=== PATIENT | male | born 1975 | race American Indian/Alaskan Native ===

== ENCOUNTER 2018-09-13 12:31 | Emergency (ER) | payer OTHER ==
--- NOTE | 2018-09-13 12:42 | Emergency Department Report ---
ED General Adult HPI - General Stated complaint: HBP Time Seen by Provider: 09/13/18 12:39 Source: patient, EMS Mode of arrival: Stretcher Limitations: No Limitations - History of Present Illness Initial comments: Patient is a 43-year-old male that presents emergency room with complaints of high blood pressure. Patient states he wrapped his blood pressure medications yesterday so he called EMS for a ride to the hospital. Patient denies chest pain shortness of breath. Patient states he just needs a refill of his medications. Patient denies abdominal pain. Patient denies headache. Patient denies blurry vision. -: Sudden Consistency: constant Improves with: medication, rest Worsens with: other (missed meds) Associated Symptoms: denies other symptoms. denies: confusion, chest pain, cough, diaphoresis, fever/chills, headaches, loss of appetite, malaise, nausea/vomiting, rash, seizure, shortness of breath, syncope, weakness Treatments Prior to Arrival: none - Related Data Previous Rx's Medication Instructions Recorded Last Taken Type Atorvastatin (Nf) [Lipitor] 10 mg PO QHS #30 tab 03/22/14 Unknown Rx Ciprofloxacin HCl [Ciprofloxacin 500 mg PO BID #14 tablet 05/06/16 Unknown Rx TAB] NIFEdipine XL [Procardia Xl] 90 mg PO QDAY 7 Days #7 tablet 09/13/18 Unknown Rx cloNIDine [Catapres] 0.2 mg PO TID 7 Days #21 tablet 09/13/18 Unknown Rx hydrALAZINE [Apresoline TAB] 100 mg PO TID 7 Days #21 tablet 09/13/18 Unknown Rx Allergies Allergy/AdvReac Type Severity Reaction Status Date / Time No Known Allergies Allergy Verified 05/04/16 20:43 ED Review of Systems ROS: Stated complaint: HBP Other details as noted in HPI Constitutional: denies: chills, fever Eyes: denies: eye pain, eye discharge, vision change ENT: denies: ear pain, throat pain Respiratory: denies: cough, shortness of breath, wheezing Cardiovascular: denies: chest pain, palpitations Endocrine: no symptoms reported Gastrointestinal: denies: abdominal pain, nausea, diarrhea Genitourinary: denies: urgency, dysuria Musculoskeletal: denies: back pain, joint swelling, arthralgia Skin: denies: rash, lesions Neurological: denies: headache, weakness, paresthesias Psychiatric: denies: anxiety, depression Hematological/Lymphatic: denies: easy bleeding, easy bruising ED Past Medical Hx - Past Medical History Previous Medical History?: Yes Hx Hypertension: Yes Hx CVA: Yes (hemo in Dec) Hx Congestive Heart Failure: No Hx Diabetes: No Hx Renal Disease: Yes Hx Asthma: No Hx COPD: No - Surgical History Past Surgical History?: Yes Additional Surgical History: removed left testicle. - Family History Family history: no significant - Social History Smoking Status: Current Every Day Smoker Substance Use Type: None - Medications Home Medications: Home Medications Medication Instructions Recorded Confirmed Last Taken Type Atorvastatin (Nf) [Lipitor] 10 mg PO QHS #30 tab 03/22/14 05/04/16 Unknown Rx Ciprofloxacin HCl [Ciprofloxacin 500 mg PO BID #14 tablet 05/06/16 Unknown Rx TAB] NIFEdipine XL [Procardia Xl] 90 mg PO QDAY 7 Days #7 tablet 09/13/18 Unknown Rx cloNIDine [Catapres] 0.2 mg PO TID 7 Days #21 tablet 09/13/18 Unknown Rx hydrALAZINE [Apresoline TAB] 100 mg PO TID 7 Days #21 tablet 09/13/18 Unknown Rx ED Physical Exam - General Limitations: No Limitations General appearance: alert, in no apparent distress - Head Head exam: Present: atraumatic, normocephalic - Eye Eye exam: Present: normal appearance, PERRL Pupils: Present: normal accommodation - ENT ENT exam: Present: mucous membranes moist - Neck Neck exam: Present: normal inspection - Respiratory Respiratory exam: Present: normal lung sounds bilaterally. Absent: respiratory distress - Cardiovascular Cardiovascular Exam: Present: regular rate, normal rhythm. Absent: systolic murmur, diastolic murmur, rubs, gallop - GI/Abdominal GI/Abdominal exam: Present: soft, normal bowel sounds. Absent: distended, tenderness, guarding - Rectal Rectal exam: Present: deferred - Extremities Exam Extremities exam: Present: normal inspection, full ROM. Absent: tenderness - Back Exam Back exam: Present: normal inspection, full ROM. Absent: tenderness - Neurological Exam Neurological exam: Present: alert, oriented X3 - Psychiatric Psychiatric exam: Present: normal affect, normal mood - Skin Skin exam: Present: warm, dry, intact, normal color. Absent: rash ED Course Vital Signs 09/13/18 09/13/18 12:53 13:13 Temperature 98.1 F Pulse Rate 91 H 84 Respiratory 18 Rate Blood Pressure 197/108 O2 Sat by Pulse 99 Oximetry - Reevaluation(s) Reevaluation #1: Discussed all results with patient. Patient's blood pressure is better. Patient denies chest pain shortness of breath. Patient will be given a refill of his medications. Discussed discharge instructions the patient. Patient was interesting in discharge instructions. Patient encouraged to take all of his medications as directed. Patient encouraged to monitor blood pressure. 09/13/18 14:14 ED Medical Decision Making - Lab Data Result diagrams: 09/13/18 13:27 09/13/18 13:27 - EKG Data -: EKG Interpreted by Al EKG shows normal: sinus rhythm, axis, intervals, QRS complexes, ST-T waves Rate: normal - EKG Data Interpretation: LVH - Medical Decision Making Patient is a 43-year-old male that presents emergency room for high blood pressure. Patient's blood pressure significantly high but patient missed his blood pressure medications. Patient given discharge instructions. Patient instructed to monitor blood pressure patient increase water. Patient to monitor blood pressure. Patient to keep a log and take to his primary care. Patient's labs essentially unremarkable except for chronic kidney disease. EKG negative for acute finding. - Differential Diagnosis high blood pressure. noncompliance. Critical Care Time: Yes Critical care attestation.: If time is entered above; I have spent that time in minutes in the direct care of this critically ill patient, excluding procedure time. Critical Care Time: 35 minutes ED Disposition Clinical Impression: Hypertensive emergency, Noncompliance Hypertension Qualifiers: Hypertension type: essential hypertension Qualified Code(s): I10 - Essential (primary) hypertension Disposition: DC-01 TO HOME OR SELFCARE Is pt being admited?: No Does the pt Need Aspirin: No Condition: Stable Instructions: Hypertension (ED) Additional Instructions: Patient follow up with primary care in 2-3 days. Patient to return to ER if condition worsens. Patient to monitor blood pressure at home and keep a log. Patient to eat a heart healthy and a renal diet. Patient to rest. Patient to take meds as directed. Continue all home medications. Patient to increase water. Prescriptions: hydrALAZINE [Apresoline TAB] 100 mg PO TID 7 Days #21 tablet cloNIDine [Catapres] 0.2 mg PO TID 7 Days #21 tablet NIFEdipine XL [Procardia Xl] 90 mg PO QDAY 7 Days #7 tablet Time of Disposition: 14:21
[2018-09-13] MEDS ORDERED: APRESOLINE PO ONE (13:05)
[2018-09-13] MEDS ORDERED: CATAPRES PO ONE (13:07)
[2018-09-13 13:44] LABS: Hematocrit 34.5 % (35.5-45.6); Hemoglobin 11.4 gm/dl (11.8-15.2); Mean Corpuscular HGB Conc 33 % (32-34); Mean Corpuscular Volume 84 fl (84-94); Platelet Count 212 K/mm3 (140-440)
[2018-09-13 14:07] LABS: Albumin 3.7 g/dL (3.9-5); Calcium 8.7 mg/dL (8.4-10.2)
[2018-09-13 14:18] VITALS: BP 168/106
== END 2018-09-13 15:00 | disposition home or self-care (01) ==
LOC: ED 12:31
DX: I16.1 Hypertensive emergency (principal); Z86.73 Personal history of transient ischemic attack (TIA), and cerebral infarction without residual deficits; F17.200 Nicotine dependence, unspecified, uncomplicated; Z79.899 Other long term (current) drug therapy
CPT/HCPCS: 36415; 80053; 85027; 93005; 93010

== ENCOUNTER 2020-11-19 18:26 | Inpatient (IN) | payer MEDICAID, OTHER ==
[2020-11-19 20:13] LABS: Basophils % (Auto) 0.5 % (0.0-1.8); Eosinophils % (Auto) 0.2 % (0.0-4.3); Hemoglobin 7.5 gm/dl (11.8-15.2); Lymphocytes # (Auto) 1.1 K/mm3 (1.2-5.4); Lymphocytes % (Auto) 10.7 % (13.4-35.0); Mean Corpuscular HGB Conc 31 % (32-34); Mean Corpuscular Volume 76 fl (84-94); Monocytes # (Auto) 0.4 K/mm3 (0.0-0.8); Monocytes % (Auto) 4.4 % (0.0-7.3); Platelet Count 327 K/mm3 (140-440); Red Blood Count 3.16 M/mm3 (3.65-5.03)
[2020-11-19] MEDS ORDERED: hydrALAZINE 20 MG/1 ML INJ IV ONE (20:32)
[2020-11-19] MEDS ORDERED: FUROSEMIDE 20 MG/2 ML INJ IV ONE (20:32)
--- NOTE | 2020-11-19 20:32 | Emergency Department Report ---
ED Shortness of Breath HPI - General Chief Complaint: Extremity Injury, Lower Stated Complaint: FEET AND HANDS SELLING Time Seen by Provider: 11/19/20 20:21 Source: patient Mode of arrival: Ambulatory Limitations: No Limitations - History of Present Illness Initial Comments: Patient is a 45-year-old male who presents emergency room with complaints of sh ortness of breath, dyspnea exertion, bilateral lower extremity swelling. Patient states his swelling started a week ago. Patient had swelling pressure. Patient states that shortness of breath dyspnea exertion started 2 weeks ago and worse. Patient states he has a past medical history of CKD 5 requiring dialysis but patient refused to go to dialysis, hypertension, CVA. Patient pain. Patient states with blood pressure medication but is not taking blood pressure medications. Patient denies calf pain. Patient denies lower extremity pain. Patient denies recent travel. Patient denies recent international travel. Patient denies exposure to the novel coronavirus. Patient denies sick contacts. Patient denies fever and chills. Patient denies cough. Patient denies diarrhea. Patient denies coming in contact with anybody with symptoms of the novel coronavirus. MD Complaint: shortness of breath -: Sudden Severity: severe Consistency: constant Improves With: rest, upright position Worsens With: lying flat, exertion Known History Of: other Associated Symptoms: denies other symptoms Treatments Prior to Arrival: none - Related Data Home Oxygen Therapy: No Previous Rx's Medication Instructions Recorded Last Taken Type Atorvastatin (Nf) [Lipitor] 10 mg PO QHS #30 tab 03/22/14 Unknown Rx Ciprofloxacin HCl [Ciprofloxacin 500 mg PO BID #14 tablet 05/06/16 Unknown Rx TAB] NIFEdipine XL [Procardia Xl] 90 mg PO QDAY 7 Days #7 tablet 09/13/18 Unknown Rx cloNIDine [Catapres] 0.2 mg PO TID 7 Days #21 tablet 09/13/18 Unknown Rx hydrALAZINE [Apresoline TAB] 100 mg PO TID 7 Days #21 tablet 09/13/18 Unknown Rx Allergies Allergy/AdvReac Type Severity Reaction Status Date / Time No Known Allergies Allergy Verified 11/19/20 20:35 ED Review of Systems ROS: Stated complaint: FEET AND HANDS SELLING Other details as noted in HPI Constitutional: denies: chills, fever Eyes: denies: eye pain, eye discharge, vision change ENT: denies: ear pain, throat pain Respiratory: orthopnea, shortness of breath, SOB with exertion, SOB at rest. denies: cough, wheezing Cardiovascular: edema. denies: chest pain, palpitations Endocrine: no symptoms reported Gastrointestinal: denies: abdominal pain, nausea, diarrhea Genitourinary: denies: urgency, dysuria Musculoskeletal: denies: back pain, joint swelling, arthralgia Skin: denies: rash, lesions Neurological: denies: headache, weakness, paresthesias Psychiatric: denies: anxiety, depression Hematological/Lymphatic: denies: easy bleeding, easy bruising ED Past Medical Hx - Past Medical History Previous Medical History?: Yes Hx Hypertension: Yes Hx CVA: Yes (hemo in Dec 2019) Hx Congestive Heart Failure: No Hx Diabetes: No Hx Renal Disease: Yes Hx Asthma: No Hx COPD: No - Surgical History Past Surgical History?: Yes Additional Surgical History: removed left testicle. - Family History Family history: no significant - Social History Smoking Status: Never Smoker Substance Use Type: None - Medications Home Medications: Home Medications Medication Instructions Recorded Confirmed Last Taken Type Atorvastatin (Nf) [Lipitor] 10 mg PO QHS #30 tab 03/22/14 05/04/16 Unknown Rx Ciprofloxacin HCl [Ciprofloxacin 500 mg PO BID #14 tablet 05/06/16 Unknown Rx TAB] NIFEdipine XL [Procardia Xl] 90 mg PO QDAY 7 Days #7 tablet 09/13/18 Unknown Rx cloNIDine [Catapres] 0.2 mg PO TID 7 Days #21 tablet 09/13/18 Unknown Rx hydrALAZINE [Apresoline TAB] 100 mg PO TID 7 Days #21 tablet 09/13/18 Unknown Rx ED Physical Exam - General Limitations: No Limitations General appearance: alert, in no apparent distress - Head Head exam: Present: atraumatic, normocephalic - Eye Eye exam: Present: normal appearance - ENT ENT exam: Present: mucous membranes moist - Neck Neck exam: Present: normal inspection - Respiratory Respiratory exam: Present: rales. Absent: respiratory distress - Cardiovascular Cardiovascular Exam: Present: regular rate, normal rhythm. Absent: systolic murmur, diastolic murmur, rubs, gallop - GI/Abdominal GI/Abdominal exam: Present: soft, normal bowel sounds - Rectal Rectal exam: Present: deferred - Extremities Exam Extremities exam: Present: pedal edema. Absent: tenderness, calf tenderness - Back Exam Back exam: Present: normal inspection - Neurological Exam Neurological exam: Present: alert, oriented X3 - Psychiatric Psychiatric exam: Present: normal affect, normal mood - Skin Skin exam: Present: warm, dry, intact, normal color. Absent: rash ED Course Vital Signs 11/19/20 11/19/20 11/19/20 19:31 19:40 20:30 Temperature 98.6 F Pulse Rate 104 H 101 H Respiratory 18 19 Rate Blood Pressure Blood Pressure 200/164 251/164 [Right] O2 Sat by Pulse 98 97 Oximetry 11/19/20 11/19/20 11/19/20 20:41 20:45 21:01 Temperature Pulse Rate 101 H 99 H 107 H Respiratory 27 H 39 H Rate Blood Pressure 245/156 245/156 215/117 Blood Pressure [Right] O2 Sat by Pulse 99 100 Oximetry 11/19/20 11/19/20 11/19/20 21:15 21:31 21:45 Temperature Pulse Rate 104 H 108 H 107 H Respiratory 32 H 20 Rate Blood Pressure 193/106 193/106 200/113 Blood Pressure [Right] O2 Sat by Pulse 100 100 100 Oximetry 11/19/20 11/19/20 11/19/20 22:01 22:15 22:18 Temperature Pulse Rate 109 H 107 H Respiratory 21 Rate Blood Pressure 195/105 195/105 219/121 Blood Pressure [Right] O2 Sat by Pulse 100 100 Oximetry 11/19/20 11/19/20 11/19/20 22:31 22:45 23:00 Temperature Pulse Rate 104 H 102 H 111 H Respiratory 21 Rate Blood Pressure 186/151 197/108 221/122 Blood Pressure [Right] O2 Sat by Pulse 100 100 Oximetry 11/19/20 11/19/20 11/19/20 23:01 23:15 23:31 Temperature Pulse Rate 107 H 102 H 101 H Respiratory 20 22 Rate Blood Pressure 221/122 212/128 224/128 Blood Pressure [Right] O2 Sat by Pulse 100 100 99 Oximetry 11/19/20 11/20/20 11/20/20 23:45 00:01 00:03 Temperature Pulse Rate 115 H 102 H 104 H Respiratory 15 14 23 Rate Blood Pressure 204/122 213/123 213/123 Blood Pressure [Right] O2 Sat by Pulse 99 99 100 Oximetry 11/20/20 11/20/20 11/20/20 00:11 00:15 00:31 Temperature Pulse Rate 105 H 105 H 101 H Respiratory 22 15 Rate Blood Pressure 200/122 200/122 189/105 Blood Pressure [Right] O2 Sat by Pulse 99 99 Oximetry - Reevaluation(s) Reevaluation #1: Patient on director of cardiac cath lab his blood pressure is 257/121. Patient was given 20 mg of hydralazine and 60 mg IV Lasix. 11/19/20 20:34 Reevaluation #2: Patient received Lasix and hydralazine. Patient states his shortness of breath is unchanged. Patient placed on 2 L of oxygen. Patient's blood pressure is better. Patient blood pressure is 188/107. I discussed all results with patient. I discussed plan of care with patient. Patient agrees with plan of care and admission. Patient to be admitted to the hospitalist service. 11/19/20 21:10 - Consultations Consultation #1: Hospitalist consulted for admission. Hospitalist to admit patient. 11/19/20 21:14 ED Medical Decision Making - Lab Data Result diagrams: 11/19/20 19:54 11/19/20 19:54 - EKG Data -: EKG Interpreted by Me EKG shows normal: sinus rhythm, axis, intervals, QRS complexes, ST-T waves Rate: tachycardia - EKG Data Interpretation: LVH - Radiology Data Radiology results: report reviewed, image reviewed interpreted by me: Chest x-ray: No pneumonia, no pneumothorax, no foreign body, no osseous findings, pulmonary edema noted CHEST 2 VIEWS INDICATION: Hx CHF. COMPARISON: None FINDINGS: SUPPORT DEVICES: None. HEART: Within normal limits. LUNGS/PLEURA: Mild interstitial edema. No effusion. No pneumothorax. ADDITIONAL FINDINGS: None. IMPRESSION: 1. Mild interstitial edema. - Medical Decision Making Patient is a 45-year-old male presents emergency room with complaints of shortness of breath, lower extremity edema, dyspnea exertion, orthopnea. Patient found to have swollen legs. Patient found to have rales on his lung sounds. Patient also found to have elevated blood pressure over 210/110. Patient given Lasix and hydralazine. Patient blood pressure improved. Patient has chronic kidney disease but still makes urine. Patient had labs done which are consistent with chronic kidney disease and anemia. Patient has a dialysis fistula in his left arm. Patient diuresing well in ER. Patient placed on 2 L of oxygen for support. Patient had a chest x-ray which shows pulmonary edema. Patient EKG which shows no acute findings and LVH. I personally viewed the EKG and the chest x-ray. Patient require admission for further evaluation treatment. Patient admitted to the hospitalist service. Critical care time documented due to the multiple reassessments, prolonged time at the bedside, interpretation of diagnostics and labs. - Differential Diagnosis Hypertensive emergency, noncompliance, CHF, volume overload, Critical Care Time: Yes Critical care time in (mins) excluding proc time.: 35 Critical care attestation.: If time is entered above; I have spent that time in minutes in the direct care o f this critically ill patient, excluding procedure time. Critical Care Time: 35 minutes ED Disposition Clinical Impression: Hypertensive emergency, Pulmonary edema cardiac cause, Elevated troponin, SOB (shortness of breath), BELLA (dyspnea on exertion) Acute on chronic renal failure Qualifiers: Acute renal failure type: unspecified Chronic kidney disease stage: unspecified stage Qualified Code(s): N17.9 - Acute kidney failure, unspecified Anemia Qualifiers: Anemia type: unspecified type Qualified Code(s): D64.9 - Anemia, unspecified Disposition: 09 OP ADMIT IP TO THIS HOSP Is pt being admited?: Yes Does the pt Need Aspirin: No Condition: Critical Time of Disposition: 21:14
[2020-11-19 20:36] LABS: Albumin 3.3 g/dL (3.9-5); Calcium 8.5 mg/dL (8.4-10.2)
[2020-11-19 20:49] LABS: Chol/HDL Ratio 2.93 %
[2020-11-19] MEDS ORDERED: cloNIDine 0.2 MG TAB PO ONE (21:59)
[2020-11-19] MEDS ORDERED: hydrALAZINE 20 MG/1 ML INJ IV PRN (21:59)
[2020-11-20] MEDS ORDERED: amLODIPine 5 MG TAB PO ONE (00:06)
[2020-11-20] MEDS ORDERED: ACETAMINOPHEN 325 MG TAB PO PRN (01:43)
[2020-11-20] MEDS ORDERED: NITROGLYCERIN 0.4 MG TAB SUBL SL PRN (01:43)
[2020-11-20] MEDS ORDERED: ONDANSETRON 4 MG/2 ML INJ IV PRN (01:43)
[2020-11-20] MEDS ORDERED: ALBUTEROL 2.5 MG/3 ML NEBU IH PRN (01:43)
[2020-11-20] MEDS ORDERED: MORPHINE 2 MG/1 ML INJ IV PRN (01:43)
[2020-11-20] MEDS ORDERED: hydrALAZINE 20 MG/1 ML INJ IV ONE (01:48)
--- NOTE | 2020-11-20 01:53 | History and Physical Report ---
History of Present Illness Date of examination: 11/20/20 Date of admission: 11/19/20 21:14 Chief complaint: Shortness of breath Lower extremity swelling History of present illness: 45-year-old male with past medical history of hypertension, CVA, renal disease was brought to the emergency room because of shortness of breath, dyspnea exertion, bilateral lower extremity swelling for a week ago. Patient had swelling pressure. Patient states that shortness of breath dyspnea exertion started 2 weeks ago and worse. Patient states he has a past medical history of CKD 5 requiring dialysis but refused to do dialysis. Patient states with blood pressure medication but is not taking blood pressure medications. Patient denies calf pain. Patient denies lower extremity pain. In the emergency room patient is found to have acute CHF exacerbation. Also patient BUN is 56 creatinine is 5.1 and troponin 0 0.074 Past History Past Medical History: hypertension, renal failure, stroke Medications and Allergies Allergies Allergy/AdvReac Type Severity Reaction Status Date / Time No Known Allergies Allergy Verified 11/19/20 20:35 Home Medications Medication Instructions Recorded Confirmed Last Taken Type Atorvastatin (Nf) [Lipitor] 10 mg PO QHS #30 tab 03/22/14 05/04/16 Unknown Rx Ciprofloxacin HCl [Ciprofloxacin 500 mg PO BID #14 tablet 05/06/16 Unknown Rx TAB] NIFEdipine XL [Procardia Xl] 90 mg PO QDAY 7 Days #7 tablet 09/13/18 Unknown Rx cloNIDine [Catapres] 0.2 mg PO TID 7 Days #21 tablet 09/13/18 Unknown Rx hydrALAZINE [Apresoline TAB] 100 mg PO TID 7 Days #21 tablet 09/13/18 Unknown Rx Active Meds: Active Medications Amlodipine Besylate (Amlodipine 5 Mg Tab) 5 mg PO QDAY JOSE Hydralazine HCl (Hydralazine 20 Mg/1 Ml Inj) 10 mg IV Q6HR PRN PRN Reason: Hypertension Last Admin: 11/19/20 23:00 Dose: 10 mg Documented by: Hydralazine HCl (Hydralazine 20 Mg/1 Ml Inj) 10 mg IV ONCE ONE Stop: 11/20/20 01:49 Last Admin: 11/20/20 01:34 Dose: 10 mg Documented by: Review of Systems Cardiovascular: edema, dyspnea on exertion Respiratory: shortness of breath, dyspnea on exertion Exam - Constitutional Vitals: Temp Pulse Resp BP Pulse Ox 98.0 F 102 H 18 190/111 94 11/20/20 01:14 11/20/20 01:34 11/20/20 01:14 11/20/20 01:34 11/20/20 01:14 General appearance: Present: no acute distress, well-nourished - EENT Eyes: Present: PERRL ENT: hearing intact, clear oral mucosa - Neck Neck: Present: supple, normal ROM - Respiratory Respiratory effort: normal Respiratory: bilateral: rales - Cardiovascular Heart Sounds: Present: S1 & S2. Absent: rub, click - Extremities Extremities: pulses symmetrical Extremity abnormal: edema Peripheral Pulses: within normal limits - Abdominal General gastrointestinal: Present: soft, non-tender, non-distended, normal bowel sounds Male genitourinary: Present: normal - Integumentary Integumentary: Present: clear, warm, dry - Musculoskeletal Musculoskeletal: gait normal, strength equal bilaterally - Psychiatric Psychiatric: appropriate mood/affect, intact judgment & insight - Neurologic Neurologic: CNII-XII intact, moves all extremities HEART Score - HEART Score Troponin: Troponin T 0.070 ng/mL (0.00-0.029) H 11/19/20 21:16 Results - Labs CBC & Chem 7: 11/19/20 19:54 11/19/20 19:54 Labs: Laboratory Last Values WBC 9.9 K/mm3 (4.5-11.0) 11/19/20 19:54 RBC 3.16 M/mm3 (3.65-5.03) L 11/19/20 19:54 Hgb 7.5 gm/dl (11.8-15.2) L 11/19/20 19:54 Hct 24.0 % (35.5-45.6) L 11/19/20 19:54 MCV 76 fl (84-94) L 11/19/20 19:54 MCH 24 pg (28-32) L 11/19/20 19:54 MCHC 31 % (32-34) L 11/19/20 19:54 RDW 19.0 % (13.2-15.2) H 11/19/20 19:54 Plt Count 327 K/mm3 (140-440) 11/19/20 19:54 Lymph % (Auto) 10.7 % (13.4-35.0) L 11/19/20 19:54 [place] % (Auto) 4.4 % (0.0-7.3) 11/19/20 19:54 Eos % (Auto) 0.2 % (0.0-4.3) 11/19/20 19:54 Baso % (Auto) 0.5 % (0.0-1.8) 11/19/20 19:54 Lymph # (Auto) 1.1 K/mm3 (1.2-5.4) L 11/19/20 19:54 [place] # (Auto) 0.4 K/mm3 (0.0-0.8) 11/19/20 19:54 Eos # (Auto) 0.0 K/mm3 (0.0-0.4) 11/19/20 19:54 Baso # (Auto) 0.0 K/mm3 (0.0-0.1) 11/19/20 19:54 Seg Neutrophils % 84.2 % (40.0-70.0) H 11/19/20 19:54 Seg Neutrophils # 8.4 K/mm3 (1.8-7.7) H 11/19/20 19:54 Sodium 141 mmol/L (137-145) 11/19/20 19:54 Potassium 3.5 mmol/L (3.6-5.0) L 11/19/20 19:54 Chloride 104.7 mmol/L (98-107) 11/19/20 19:54 Carbon Dioxide 21 mmol/L (22-30) L 11/19/20 19:54 Anion Gap 19 mmol/L 11/19/20 19:54 BUN 56 mg/dL (9-20) H 11/19/20 19:54 Creatinine 5.1 mg/dL (0.8-1.3) H 11/19/20 19:54 Estimated GFR 15 ml/min 11/19/20 19:54 BUN/Creatinine Ratio 11 % 11/19/20 19:54 Glucose 104 mg/dL (75-100) H 11/19/20 19:54 POC Glucose 130 mg/dL (70-105) H 11/19/20 19:39 Calcium 8.5 mg/dL (8.4-10.2) 11/19/20 19:54 Total Bilirubin 0.50 mg/dL (0.1-1.2) 11/19/20 19:54 AST 40 units/L (5-40) 11/19/20 19:54 ALT 82 units/L (7-56) H 11/19/20 19:54 Alkaline Phosphatase 80 units/L (35-129) 11/19/20 19:54 Troponin T 0.070 ng/mL (0.00-0.029) H 11/19/20 21:16 Total Protein 6.5 g/dL (6.3-8.2) 11/19/20 19:54 Albumin 3.3 g/dL (3.9-5) L 11/19/20 19:54 Albumin/Globulin Ratio 1.0 % 11/19/20 19:54 Triglycerides 74 mg/dL (2-149) 11/19/20 19:54 Cholesterol 126 mg/dL (50-199) 11/19/20 19:54 LDL Cholesterol Direct 78 mg/dL (50-130) 11/19/20 19:54 HDL Cholesterol 43 mg/dL (40-59) 11/19/20 19:54 Cholesterol/HDL Ratio 2.93 % 11/19/20 19:54 - Imaging and Cardiology Chest x-ray: report reviewed Assessment and Plan VTE prophylaxis?: Chemical Plan of care discussed with patient/family: Yes - Patient Problems (1) Acute exacerbation of CHF (congestive heart failure) Current Visit: Yes Status: Acute Plan to address problem: Admit the patient to the medical floor. Cardiac diet. Lasix 20 mg IV daily. Fluid restriction. Maintain input output echocardiogram cardiology consult (2) Acute on chronic renal failure Current Visit: Yes Status: Acute Qualifiers: Acute renal failure type: unspecified Chronic kidney disease stage: unspecified stage Qualified Code(s): N17.9 - Acute kidney failure, unspecified; N18.9 - Chronic kidney disease, unspecified Plan to address problem: Patient has stage V CKD. Patient supposed to go to the hemodialysis but patient refused to go to the dialysis. Avoid nephrotoxic drug. Consult nephrology recheck BMP in the morning (3) Hypertension Current Visit: Yes Status: Acute Plan to address problem: Hydralazine 10 mg IV every 6 hours as needed. We will monitor the blood pressure closely (4) Elevated troponin Current Visit: Yes Status: Acute Plan to address problem: Most likely secondary to CKD. Aspirin 81 mg p.o. daily. Lipitor 40 mg p.o. daily. Echocardiogram cardiology consult (5) CVA (cerebrovascular accident due to intracerebral hemorrhage) Current Visit: No Status: Acute Plan to address problem: Stable. Aspirin 81 mg p.o. daily. Lipitor 40 mg p.o. daily (6) DVT prophylaxis Current Visit: Yes Status: Acute Plan to address problem: Heparin 5000 units subcu every 8 hours for DVT prophylaxis. Pepcid 20 mg p.o. twice daily for GI prophylaxis. Patient is a full code
[2020-11-20] MEDS: IPRATROPIUM/ALBUTEROL SULFATE 3 ML AMPUL.NEB IH SCH ×3 (03:13→13:39)
[2020-11-20] MEDS: HEPARIN 5,000 UNIT/1 ML VIAL SUB-Q SCH ×3 (06:02→21:50)
[2020-11-20] MEDS: NIFEdipine XL 90 MG TAB PO SCH (06:02)
[2020-11-20] MEDS: hydrALAZINE 25 MG TAB PO SCH ×4 (08:00→21:45)
--- NOTE | 2020-11-20 09:17 | Electrocardiograph Report ---
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
--- NOTE | 2020-11-20 09:21 | Electrocardiograph Report ---
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
--- NOTE | 2020-11-20 09:27 | Progress Note ---
Assessment and Plan Assessment and plan: 45-year-old -[place] male with a past medical history of CKD stage V and hypertension who presents with lower extremity swelling Assessment and Plan - Patient Problems (1) Acute exacerbation of CHF (congestive heart failure) Current Visit: Yes Status: Acute Plan to address problem: Echocardiogram pending Cardiology consulted Sal (2) Acute on chronic renal failure stage V Current Visit: Yes Status: Acute Plan to address problem: Nephrology consulted Patient is amenable to hemodialysis (3) Hypertension Current Visit: Yes Status: Acute Plan to address problem: Hydralazine 10 mg IV every 6 hours as needed. Continue clonidine and nifedipine for recommendations of cardiology/nephrology (4) NSTEMI type II Current Visit: Yes Status: Acute Plan to address problem: Most likely secondary to uncontrolled hypertension in addition to chronic kidney disease Patient asymptomatic, no chest pain Cardiology consulted Control blood pressure with clonidine, hydralazine, nifedipine (5) CVA (cerebrovascular accident due to intracerebral hemorrhage) Current Visit: No Status: Acute Plan to address problem: Stable. Continue aspirin 81 mg p.o. daily. Lipitor 40 mg p.o. daily (6) DVT prophylaxis Current Visit: Yes Status: Acute Plan to address problem: Heparin 5000 units subcu every 8 hours for DVT prophylaxis. Pepcid 20 mg p.o. twice daily for GI prophylaxis. Patient is a full code Disposition: Pending echocardiogram, diurese patient, patient may need dialysis which he is amenable to. Nephrology to speak to the patient pertaining to this. History Interval history: 11/20/2020: Patient seen and examined, eating breakfast, no chest pain, no shortness of breath, complains of lower extremity pain and swelling. Hospitalist Physical - Physical exam Narrative exam: General appearance: no acute distress, well-nourished EENT: PERRL, EOM intact, hearing intact, clear oral mucosa Neck: Present: supple, normal ROM Respiratory: bilateral CTA, negative: rales, rhonchi, wheezing Cardiovascular: Regular rate/rhythm, Normal S1 & S2. No gallop, rub Extremities: no ischemia, normal temperature, normal color, Full ROM, +1 pitting edema bilaterally in lower extremities Abdominal: soft, no tenderness, non-distended, normal bowel sounds Integumentary: Present: clear, warm, dry no wounds, no erythema noted Psychiatric: appropriate mood/affect, intact judgment & insight Neurologic: CNII-XII intact, moves all extremities, no sensory or motor abnormalities - Constitutional Vitals: Temp Pulse Resp BP Pulse Ox 98.4 F 98 H 18 173/99 100 11/20/20 03:59 11/20/20 03:59 11/20/20 03:59 11/20/20 03:59 11/20/20 05:00 HEART Score - HEART Score Troponin: Troponin T 0.070 ng/mL (0.00-0.029) H 11/19/20 21:16 Results - Labs CBC & Chem 7: 11/19/20 19:54 11/19/20 19:54 Labs: Laboratory Last Values WBC 9.9 K/mm3 (4.5-11.0) 11/19/20 19:54 RBC 3.16 M/mm3 (3.65-5.03) L 11/19/20 19:54 Hgb 7.5 gm/dl (11.8-15.2) L 11/19/20 19:54 Hct 24.0 % (35.5-45.6) L 11/19/20 19:54 MCV 76 fl (84-94) L 11/19/20 19:54 MCH 24 pg (28-32) L 11/19/20 19:54 MCHC 31 % (32-34) L 11/19/20 19:54 RDW 19.0 % (13.2-15.2) H 11/19/20 19:54 Plt Count 327 K/mm3 (140-440) 11/19/20 19:54 Lymph % (Auto) 10.7 % (13.4-35.0) L 11/19/20 19:54 [place] % (Auto) 4.4 % (0.0-7.3) 11/19/20 19:54 Eos % (Auto) 0.2 % (0.0-4.3) 11/19/20 19:54 Baso % (Auto) 0.5 % (0.0-1.8) 11/19/20 19:54 Lymph # (Auto) 1.1 K/mm3 (1.2-5.4) L 11/19/20 19:54 [place] # (Auto) 0.4 K/mm3 (0.0-0.8) 11/19/20 19:54 Eos # (Auto) 0.0 K/mm3 (0.0-0.4) 11/19/20 19:54 Baso # (Auto) 0.0 K/mm3 (0.0-0.1) 11/19/20 19:54 Seg Neutrophils % 84.2 % (40.0-70.0) H 11/19/20 19:54 Seg Neutrophils # 8.4 K/mm3 (1.8-7.7) H 11/19/20 19:54 Sodium 141 mmol/L (137-145) 11/19/20 19:54 Potassium 3.5 mmol/L (3.6-5.0) L 11/19/20 19:54 Chloride 104.7 mmol/L (98-107) 11/19/20 19:54 Carbon Dioxide 21 mmol/L (22-30) L 11/19/20 19:54 Anion Gap 19 mmol/L 11/19/20 19:54 BUN 56 mg/dL (9-20) H 11/19/20 19:54 Creatinine 5.1 mg/dL (0.8-1.3) H 11/19/20 19:54 Estimated GFR 15 ml/min 11/19/20 19:54 BUN/Creatinine Ratio 11 % 11/19/20 19:54 Glucose 104 mg/dL (75-100) H 11/19/20 19:54 POC Glucose 130 mg/dL (70-105) H 11/19/20 19:39 Calcium 8.5 mg/dL (8.4-10.2) 11/19/20 19:54 Total Bilirubin 0.50 mg/dL (0.1-1.2) 11/19/20 19:54 AST 40 units/L (5-40) 11/19/20 19:54 ALT 82 units/L (7-56) H 11/19/20 19:54 Alkaline Phosphatase 80 units/L (35-129) 11/19/20 19:54 Troponin T 0.070 ng/mL (0.00-0.029) H 11/19/20 21:16 Total Protein 6.5 g/dL (6.3-8.2) 11/19/20 19:54 Albumin 3.3 g/dL (3.9-5) L 11/19/20 19:54 Albumin/Globulin Ratio 1.0 % 11/19/20 19:54 Triglycerides 74 mg/dL (2-149) 11/19/20 19:54 Cholesterol 126 mg/dL (50-199) 11/19/20 19:54 LDL Cholesterol Direct 78 mg/dL (50-130) 11/19/20 19:54 HDL Cholesterol 43 mg/dL (40-59) 11/19/20 19:54 Cholesterol/HDL Ratio 2.93 % 11/19/20 19:54 [place]/IV: Voiding Method Urinal Active Medications - Current Medications Current Medications: Generic Name Dose Route Start Last Admin Trade Name Freq PRN Reason Stop Dose Admin Acetaminophen 650 mg 11/20/20 01:43 Acetaminophen 325 Mg Tab PO Q4H PRN Pain MILD(1-3)/Fever >100.5/SINGLETARY Albuterol 2.5 mg 11/20/20 01:43 Albuterol 2.5 Mg/3 Ml Nebu IH Q4HRT PRN Shortness Of Breath Albuterol/Ipratropium 1 ampul 11/20/20 02:00 11/20/20 08:28 Ipratropium/Albuterol Sulfate 3 Ml Ampul.Neb IH Not Given Q6HRT [facility] Aspirin 81 mg 11/20/20 10:00 Aspirin 81 Mg Tab Chew PO QDAY [facility] Atorvastatin Calcium 40 mg 11/20/20 22:00 Atorvastatin 40 Mg Tab PO QHS [facility] Clonidine HCl 0.2 mg 11/20/20 08:00 Clonidine 0.2 Mg Tab PO TID [facility] Famotidine 20 mg 11/20/20 10:00 Famotidine 20 Mg Tab PO QAM [facility] Furosemide 20 mg 11/20/20 10:00 Furosemide 20 Mg/2 Ml Inj IV QDAY [facility] Heparin Sodium (Porcine) 5,000 unit 11/20/20 06:00 11/20/20 06:02 Heparin 5,000 Unit/1 Ml Vial SUB-Q 5,000 unit Q8HR [facility] Administration Hydralazine HCl 100 mg 11/20/20 08:00 Hydralazine 25 Mg Tab PO TID [facility] Hydralazine HCl 10 mg 11/20/20 01:55 Hydralazine 20 Mg/1 Ml Inj IV Q6H PRN Blood Pressure Morphine Sulfate 2 mg 11/20/20 01:43 11/20/20 02:12 Morphine 2 Mg/1 Ml Inj IV 2 mg Q4H PRN Administration Pain, Moderate (4-6) Nifedipine 90 mg 11/20/20 06:00 11/20/20 06:02 Nifedipine Xl 90 Mg Tab PO 90 mg QDAY@0600 JOSE Administration Nitroglycerin 0.4 mg 11/20/20 01:43 Nitroglycerin 0.4 Mg Tab Subl SL .Q5MIN PRN Chest Pain Ondansetron HCl 4 mg 11/20/20 01:43 Ondansetron 4 Mg/2 Ml Inj IV Q8H PRN Nausea And Vomiting Sodium Chloride 10 ml 11/20/20 10:00 Sodium Chloride 0.9% 10 Ml Flush Syringe IV BID JOSE Sodium Chloride 10 ml 11/20/20 01:43 Sodium Chloride 0.9% 10 Ml Flush Syringe IV PRN PRN LINE FLUSH
[2020-11-20] MEDS ORDERED: levoFLOXacin 500 MG TAB PO SCH (10:00)
[2020-11-20] MEDS ORDERED: CIPROFLOXACIN HCL 500 MG PO SCH (10:00)
[2020-11-20] MEDS ORDERED: amLODIPine 5 MG TAB PO SCH (10:00)
--- NOTE | 2020-11-20 10:15 | Consultation ---
History of Present Illness - Reason for Consult Consult date: 11/20/20 acute renal failure, chronic renal failure - History of Present Illness 45-year-old male with past medical history of hypertension, CVA, renal disease was brought to the emergency room because of shortness of breath, dyspnea exertion, bilateral lower extremity swelling for a week ago. BUN is 56 creatinine is 5.1 and troponin 0 0.074. she is known to have CKD. renal consult was requested for management of severe renal failure. Past History Past Medical History: hypertension, renal failure, stroke Medications and Allergies Allergies Allergy/AdvReac Type Severity Reaction Status Date / Time No Known Allergies Allergy Verified 11/19/20 20:35 Home Medications Medication Instructions Recorded Confirmed Last Taken Type Atorvastatin (Nf) [Lipitor] 10 mg PO QHS #30 tab 03/22/14 05/04/16 Unknown Rx Ciprofloxacin HCl [Ciprofloxacin 500 mg PO BID #14 tablet 05/06/16 Unknown Rx TAB] NIFEdipine XL [Procardia Xl] 90 mg PO QDAY 7 Days #7 tablet 09/13/18 Unknown Rx cloNIDine [Catapres] 0.2 mg PO TID 7 Days #21 tablet 09/13/18 Unknown Rx hydrALAZINE [Apresoline TAB] 100 mg PO TID 7 Days #21 tablet 09/13/18 Unknown Rx Active Meds: Active Medications Acetaminophen (Acetaminophen 325 Mg Tab) 650 mg PO Q4H PRN PRN Reason: Pain MILD(1-3)/Fever >100.5/SINGLETARY Albuterol (Albuterol 2.5 Mg/3 Ml Nebu) 2.5 mg IH Q4HRT PRN PRN Reason: Shortness Of Breath Albuterol/Ipratropium (Ipratropium/Albuterol Sulfate 3 Ml Ampul.Neb) 1 ampul IH Q6HRT [facility] Last Admin: 11/20/20 08:28 Dose: Not Given Documented by: Aspirin (Aspirin 81 Mg Tab Chew) 81 mg PO QDAY JOSE Atorvastatin Calcium (Atorvastatin 40 Mg Tab) 40 mg PO QHS [facility] Clonidine HCl (Clonidine 0.2 Mg Tab) 0.2 mg PO TID JOSE Famotidine (Famotidine 20 Mg Tab) 20 mg PO QAM [facility] Furosemide (Furosemide 20 Mg/2 Ml Inj) 20 mg IV QDAY [facility] Heparin Sodium (Porcine) (Heparin 5,000 Unit/1 Ml Vial) 5,000 unit SUB-Q Q8HR [facility] Last Admin: 11/20/20 06:02 Dose: 5,000 unit Documented by: Hydralazine HCl (Hydralazine 25 Mg Tab) 100 mg PO TID [facility] Hydralazine HCl (Hydralazine 20 Mg/1 Ml Inj) 10 mg IV Q6H PRN PRN Reason: Blood Pressure Morphine Sulfate (Morphine 2 Mg/1 Ml Inj) 2 mg IV Q4H PRN PRN Reason: Pain, Moderate (4-6) Last Admin: 11/20/20 02:12 Dose: 2 mg Documented by: Nifedipine (Nifedipine Xl 90 Mg Tab) 90 mg PO QDAY@0600 [facility] Last Admin: 11/20/20 06:02 Dose: 90 mg Documented by: Nitroglycerin (Nitroglycerin 0.4 Mg Tab Subl) 0.4 mg SL .Q5MIN PRN PRN Reason: Chest Pain Ondansetron HCl (Ondansetron 4 Mg/2 Ml Inj) 4 mg IV Q8H PRN PRN Reason: Nausea And Vomiting Sodium Chloride (Sodium Chloride 0.9% 10 Ml Flush Syringe) 10 ml IV BID [facility] Sodium Chloride (Sodium Chloride 0.9% 10 Ml Flush Syringe) 10 ml IV PRN PRN PRN Reason: LINE FLUSH Review of Systems All systems: negative (SOB, swelling) Exam - Vital Signs Vital signs: Vital Signs Temp Pulse Resp Pulse Ox 98.6 F 104 H 18 98 11/19/20 19:31 11/19/20 19:31 11/19/20 19:31 11/19/20 19:31 - General Appearance General appearance: well-developed, well-nourished EENT: ATNC, PERRL Neck: Present: neck supple Respiratory: Decreased Breath Sounds Heart: tachycardia Gastrointestinal: Present: normoactive bowel sounds. Absent: tenderness, distended Integumentary: no rash, warm and dry Neurologic: no focal deficit, no asterixis, alert and oriented x3 Musculoskeletal: Present: other (swelling in BLE) Psychiatric: mood/affect appropriate, cooperative Results - Lab Results 11/19/20 19:54 11/19/20 19:54 Most recent lab results Calcium 8.5 mg/dL (8.4-10.2) 11/19/20 19:54 Assessment and Plan (1) Acute exacerbation of CHF (congestive heart failure) (2) Acute on chronic renal failure (3) Hypertension (4) Elevated troponin (5) CVA (cerebrovascular accident due to intracerebral hemorrhage) worsening kidney function is likely secondary to progression of CKD will likely need dialysis initiation during this admission if agreeable, will check 24 hours creatinine clearance not a candidate for IVF challenge due to volume overload cont lasix, can increase if needed if no adequate UOP response will check renal US will check urine lytes and creatinine renally dose meds strict I&O Tommy nunn MD [phone]
--- NOTE | 2020-11-20 11:45 | Consultation ---
History of Present Illness Consult date: 11/20/20 Requesting physician: HAZEL ALCANTARA Consult reason: congestive heart failure History of present illness: Pt is a 45-year-old AA male with a hx of CKD and HTN who presented with complaints of SOB/BELLA and BLE edema x 1 week. Pt also endorses PND. Of note, pt had a LUE graft placed for HD in September 2018. He states it was recommended that he start dialysis; however, he did not want to proceed with HD. CXR on arrival revealed interstitial edema. Of note, pt is non-compliant with his home meds and outpatient follow-ups. Echo 06/2018 - EF 56%, grade III diastolic dysfxn, elevated LVEDP, no significant valvular disease. Past History Past Medical History: hypertension, renal failure, stroke Medications and Allergies Allergies Allergy/AdvReac Type Severity Reaction Status Date / Time No Known Allergies Allergy Verified 11/19/20 20:35 Home Medications Medication Instructions Recorded Confirmed Last Taken Type Atorvastatin (Nf) [Lipitor] 10 mg PO QHS #30 tab 03/22/14 05/04/16 Unknown Rx Ciprofloxacin HCl [Ciprofloxacin 500 mg PO BID #14 tablet 05/06/16 Unknown Rx TAB] NIFEdipine XL [Procardia Xl] 90 mg PO QDAY 7 Days #7 tablet 09/13/18 Unknown Rx cloNIDine [Catapres] 0.2 mg PO TID 7 Days #21 tablet 09/13/18 Unknown Rx hydrALAZINE [Apresoline TAB] 100 mg PO TID 7 Days #21 tablet 09/13/18 Unknown Rx Active Meds: Active Medications Acetaminophen (Acetaminophen 325 Mg Tab) 650 mg PO Q4H PRN PRN Reason: Pain MILD(1-3)/Fever >100.5/SINGLETARY Albuterol (Albuterol 2.5 Mg/3 Ml Nebu) 2.5 mg IH Q4HRT PRN PRN Reason: Shortness Of Breath Albuterol/Ipratropium (Ipratropium/Albuterol Sulfate 3 Ml Ampul.Neb) 1 ampul IH Q6HRT JOSE Last Admin: 11/20/20 08:28 Dose: Not Given Documented by: Aspirin (Aspirin 81 Mg Tab Chew) 81 mg PO QDAY JOSE Atorvastatin Calcium (Atorvastatin 40 Mg Tab) 40 mg PO QHS COUNTS [facility]CLUDE 234 BEDS AT [facility] Clonidine HCl (Clonidine 0.2 Mg Tab) 0.2 mg PO TID COUNTS INCLUDE 234 BEDS AT THE [facility] Famotidine (Famotidine 20 Mg Tab) 20 mg PO QAM COUNTS INCLUDE 234 BEDS AT THE [facility] Furosemide (Furosemide 20 Mg/2 Ml Inj) 20 mg IV QDAY COUNTS INCLUDE 234 BEDS AT THE [facility] Heparin Sodium (Porcine) (Heparin 5,000 Unit/1 Ml Vial) 5,000 unit SUB-Q Q8HR COUNTS [facility]CLUDE 234 BEDS AT THE [facility] Last Admin: 11/20/20 06:02 Dose: 5,000 unit Documented by: Hydralazine HCl (Hydralazine 25 Mg Tab) 100 mg PO TID COUNTS INCLUDE 234 BEDS AT THE [facility] Hydralazine HCl (Hydralazine 20 Mg/1 Ml Inj) 10 mg IV Q6H PRN PRN Reason: Blood Pressure Morphine Sulfate (Morphine 2 Mg/1 Ml Inj) 2 mg IV Q4H PRN PRN Reason: Pain, Moderate (4-6) Last Admin: 11/20/20 02:12 Dose: 2 mg Documented by: Nifedipine (Nifedipine Xl 90 Mg Tab) 90 mg PO QDAY@0600 COUNTS INCLUDE 234 BEDS AT [facility] Last Admin: 11/20/20 06:02 Dose: 90 mg Documented by: Nitroglycerin (Nitroglycerin 0.4 Mg Tab Subl) 0.4 mg SL .Q5MIN PRN PRN Reason: Chest Pain Ondansetron HCl (Ondansetron 4 Mg/2 Ml Inj) 4 mg IV Q8H PRN PRN Reason: Nausea And Vomiting Sodium Chloride (Sodium Chloride 0.9% 10 Ml Flush Syringe) 10 ml IV BID COUNTS INCLUDE 234 BEDS AT THE [facility] Sodium Chloride (Sodium Chloride 0.9% 10 Ml Flush Syringe) 10 ml IV PRN PRN PRN Reason: LINE FLUSH Review of Systems Constitutional: no fever, no chills Ears, nose, mouth and throat: no nasal congestion, no sore throat Cardiovascular: orthopnea, edema, shortness of breath, dyspnea on exertion, paroxysmal nocturnal dyspnea, no chest pain, no palpitations, no syncope, no lightheadedness Respiratory: shortness of breath, dyspnea on exertion, no cough Gastrointestinal: no abdominal pain, no nausea, no vomiting Genitourinary Male: no dysuria, no flank pain Musculoskeletal: no neck stiffness, no neck pain Integumentary: no rash, no wounds Neurological: no head injury, no weakness, no numbness, no tingling, no seizures, no syncope, no vertigo, no headaches Endocrine: no cold intolerance, no heat intolerance Hematologic/Lymphatic: no easy bruising, no easy bleeding Allergic/Immunologic: no anaphylaxis Physical Examination Last Vital Signs Temp 98.0 F 11/20/20 09:16 Pulse 95 H 11/20/20 09:16 Resp 18 11/20/20 09:16 BP 178/95 11/20/20 09:16 Pulse Ox 99 11/20/20 09:16 General appearance: no acute distress HEENT: Positive: EOMI, Normocephaly, Mucus Membranes Moist Neck: Positive: neck supple, trachea midline Cardiac: Positive: Reg Rate and Rhythm, S1/S2 Lungs: Positive: Rales (bibasilar) Neuro: Positive: Grossly Intact Abdomen: Positive: Soft. Negative: Tender Skin: Negative: Rash Musculoskeletal: No Pain Extremities: Present: upper extr. pulses, lower extr. pulses, edema (trace RLE, 1+ LLE) Results 11/19/20 19:54 11/19/20 19:54 Cardiac Enzymes 11/19/20 Range/Units 19:54 AST 40 (5-40) units/L Lipids 11/19/20 Range/Units 19:54 Triglycerides 74 (2-149) mg/dL Cholesterol 126 (50-199) mg/dL HDL Cholesterol 43 (40-59) mg/dL Cholesterol/HDL Ratio 2.93 % CBC 11/19/20 Range/Units 19:54 WBC 9.9 (4.5-11.0) K/mm3 RBC 3.16 L (3.65-5.03) M/mm3 Hgb 7.5 L (11.8-15.2) gm/dl Hct 24.0 L (35.5-45.6) % Plt Count 327 (140-440) K/mm3 Lymph # (Auto) 1.1 L (1.2-5.4) K/mm3 [place] # (Auto) 0.4 (0.0-0.8) K/mm3 Eos # (Auto) 0.0 (0.0-0.4) K/mm3 Baso # (Auto) 0.0 (0.0-0.1) K/mm3 Comprehensive Metabolic Panel 11/19/20 Range/Units 19:54 Sodium 141 (137-145) mmol/L Potassium 3.5 L (3.6-5.0) mmol/L Chloride 104.7 (98-107) mmol/L Carbon Dioxide 21 L (22-30) mmol/L BUN 56 H (9-20) mg/dL Creatinine 5.1 H (0.8-1.3) mg/dL Glucose 104 H (75-100) mg/dL Calcium 8.5 (8.4-10.2) mg/dL AST 40 (5-40) units/L ALT 82 H (7-56) units/L Alkaline Phosphatase 80 (35-129) units/L Total Protein 6.5 (6.3-8.2) g/dL Albumin 3.3 L (3.9-5) g/dL - Imaging and Cardiology Echo: pending EKG: report reviewed, image reviewed - EKG Interpretation EKG: no acute changes EKG interpretations - EKG Sinus rhythms and dysrhythmias: sinus rhythm Chamber hypertrophy or enlargement: left ventricular hypertro Assessment and Plan Echo reviewed - EF 55-60%, restrictive physiology, severe LVH, LA severely dilated, RA mildly dilated, trace AR, trace MR, mild TR, RVSP 42mmHg, trace UT. Continue IV diuresis per Nephro recs for now until HD is initiated. Suspect NSTEMI Type 2 in the setting of renal failure and acc HTN. Will optimize antihypertensive regimen. Plan for Lexiscan stress MPI in AM. NPO after midnight. Pt seen in conjunction with Dr. Cleveland, who agrees with the assessment and plan of care. - Patient Problems (1) Acute heart failure with preserved ejection fraction (HFpEF) Current Visit: Yes Status: Acute (2) Acute on chronic renal failure Current Visit: Yes Status: Acute Qualifiers: Chronic kidney disease stage: unspecified stage Qualified Code(s): N17.9 - Acute kidney failure, unspecified; N18.9 - Chronic kidney disease, unspecified (3) Anemia Current Visit: Yes Status: Acute Qualifiers: Qualified Code(s): D64.9 - Anemia, unspecified (4) Accelerated hypertension Current Visit: Yes Status: Acute (5) NSTEMI (non-ST elevated myocardial infarction) Current Visit: Yes Status: Acute Plan to address problem: Type 2 (6) H/O: CVA (cerebrovascular accident) Current Visit: Yes Status: Chronic (7) Medical non-compliance Current Visit: Yes Status: Chronic
[2020-11-20] MEDS: cloNIDine 0.2 MG TAB PO SCH ×3 (13:18→21:46)
[2020-11-20] MEDS: FAMOTIDINE 20 MG TAB PO SCH (13:19)
[2020-11-20] MEDS: ASPIRIN 81 MG TAB CHEW PO SCH (13:19)
[2020-11-20] MEDS: FUROSEMIDE 20 MG/2 ML INJ IV SCH (13:26)
[2020-11-20] MEDS: METOPROLOL TARTRATE 50 MG TAB PO SCH ×2 (13:41→23:22)
--- NOTE | 2020-11-20 14:41 | Consultation ---
History of Present Illness - Reason for Consult Consult date: 11/20/20 Dialysis access - History of Present Illness Patient with a history of end-stage renal disease who is not on hemodialysis. The patient has a history of approximately 1 year ago attempted creation of a left upper arm brachiocephalic fistula at [facility]. Per the patient, this failed and the patient underwent a second surgery in his left upper arm with the creation of a brachiobasilic fistula at [facility]. There is a palpable thrill throughout the course of the fistula. The fistula has not been elevated or transposed. The patient never returned for any additional surgeries. Patient has not yet started on dialysis. Resting comfortably in bed at time of examination. The patient is currently undergoing a venous ultrasound for possible DVT. Past History Past Medical History: ESRD, hypertension, renal failure, stroke Medications and Allergies Allergies Allergy/AdvReac Type Severity Reaction Status Date / Time No Known Allergies Allergy Verified 11/19/20 20:35 Home Medications Medication Instructions Recorded Confirmed Last Taken Type Atorvastatin (Nf) [Lipitor] 10 mg PO QHS #30 tab 03/22/14 05/04/16 Unknown Rx Ciprofloxacin HCl [Ciprofloxacin 500 mg PO BID #14 tablet 05/06/16 Unknown Rx TAB] NIFEdipine XL [Procardia Xl] 90 mg PO QDAY 7 Days #7 tablet 09/13/18 Unknown Rx cloNIDine [Catapres] 0.2 mg PO TID 7 Days #21 tablet 09/13/18 Unknown Rx hydrALAZINE [Apresoline TAB] 100 mg PO TID 7 Days #21 tablet 09/13/18 Unknown Rx Active Meds: Active Medications Acetaminophen (Acetaminophen 325 Mg Tab) 650 mg PO Q4H PRN PRN Reason: Pain MILD(1-3)/Fever >100.5/SINGLETARY Albuterol (Albuterol 2.5 Mg/3 Ml Nebu) 2.5 mg IH Q4HRT PRN PRN Reason: Shortness Of Breath Aspirin (Aspirin 81 Mg Tab Chew) 81 mg PO QDAY [facility] Last Admin: 11/20/20 13:19 Dose: 81 mg Documented by: Atorvastatin Calcium (Atorvastatin 40 Mg Tab) 40 mg PO QHS JOSE Clonidine HCl (Clonidine 0.2 Mg Tab) 0.2 mg PO TID [facility] Last Admin: 11/20/20 13:18 Dose: 0.2 mg Documented by: Famotidine (Famotidine 20 Mg Tab) 20 mg PO QAM [facility] Last Admin: 11/20/20 13:19 Dose: 20 mg Documented by: Furosemide (Furosemide 20 Mg/2 Ml Inj) 20 mg IV QDAY [facility] Last Admin: 11/20/20 13:26 Dose: 20 mg Documented by: Heparin Sodium (Porcine) (Heparin 5,000 Unit/1 Ml Vial) 5,000 unit SUB-Q Q8HR [facility] Last Admin: 11/20/20 13:47 Dose: 5,000 unit Documented by: Hydralazine HCl (Hydralazine 25 Mg Tab) 100 mg PO TID [facility] Last Admin: 11/20/20 13:46 Dose: 100 mg Documented by: Hydralazine HCl (Hydralazine 20 Mg/1 Ml Inj) 10 mg IV Q6H PRN PRN Reason: Blood Pressure Metoprolol Tartrate (Metoprolol Tartrate 50 Mg Tab) 50 mg PO BID [facility] Last Admin: 11/20/20 13:41 Dose: 50 mg Documented by: Morphine Sulfate (Morphine 2 Mg/1 Ml Inj) 2 mg IV Q4H PRN PRN Reason: Pain, Moderate (4-6) Last Admin: 11/20/20 02:12 Dose: 2 mg Documented by: Nifedipine (Nifedipine Xl 90 Mg Tab) 90 mg PO QDAY@0600 [facility] Last Admin: 11/20/20 06:02 Dose: 90 mg Documented by: Nitroglycerin (Nitroglycerin 0.4 Mg Tab Subl) 0.4 mg SL .Q5MIN PRN PRN Reason: Chest Pain Ondansetron HCl (Ondansetron 4 Mg/2 Ml Inj) 4 mg IV Q8H PRN PRN Reason: Nausea And Vomiting Sodium Chloride (Sodium Chloride 0.9% 10 Ml Flush Syringe) 10 ml IV BID [facility] Last Admin: 11/20/20 13:35 Dose: 10 ml Documented by: Sodium Chloride (Sodium Chloride 0.9% 10 Ml Flush Syringe) 10 ml IV PRN PRN PRN Reason: LINE FLUSH Review of Systems All systems: negative Exam - Constitutional Vitals: Temp Pulse Resp BP Pulse Ox 98.0 F 82 18 185/104 98 11/20/20 09:16 11/20/20 13:41 11/20/20 13:39 11/20/20 13:46 11/20/20 13:52 General appearance: Present: no acute distress - EENT Eyes: Present: EOM intact ENT: hearing intact - Neck Neck: Present: normal ROM - Respiratory Respiratory effort: normal - Extremities Extremity abnormal: edema - Abdominal General gastrointestinal: Present: deferred Male genitourinary: Present: deferred - Rectal Rectal Exam: deferred - Psychiatric Psychiatric: appropriate mood/affect, cooperative Results - Labs CBC & Chem 7: 11/19/20 19:54 11/19/20 19:54 Labs: Abnormal lab results 11/19/20 11/19/20 11/19/20 Range/Units 19:39 19:54 19:54 RBC 3.16 L (3.65-5.03) M/mm3 Hgb 7.5 L (11.8-15.2) gm/dl Hct 24.0 L (35.5-45.6) % MCV 76 L (84-94) fl MCH 24 L (28-32) pg MCHC 31 L (32-34) % RDW 19.0 H (13.2-15.2) % Lymph % (Auto) 10.7 L (13.4-35.0) % Lymph # (Auto) 1.1 L (1.2-5.4) K/mm3 Seg Neutrophils % 84.2 H (40.0-70.0) % Seg Neutrophils # 8.4 H (1.8-7.7) K/mm3 Potassium 3.5 L (3.6-5.0) mmol/L Carbon Dioxide 21 L (22-30) mmol/L BUN 56 H (9-20) mg/dL Creatinine 5.1 H (0.8-1.3) mg/dL Glucose 104 H (75-100) mg/dL POC Glucose 130 H (70-105) mg/dL ALT 82 H (7-56) units/L Troponin T 0.074 H (0.00-0.029) ng/mL Albumin 3.3 L (3.9-5) g/dL 11/19/20 Range/Units 21:16 RBC (3.65-5.03) M/mm3 Hgb (11.8-15.2) gm/dl Hct (35.5-45.6) % MCV (84-94) fl MCH (28-32) pg MCHC (32-34) % RDW (13.2-15.2) % Lymph % (Auto) (13.4-35.0) % Lymph # (Auto) (1.2-5.4) K/mm3 Seg Neutrophils % (40.0-70.0) % Seg Neutrophils # (1.8-7.7) K/mm3 Potassium (3.6-5.0) mmol/L Carbon Dioxide (22-30) mmol/L BUN (9-20) mg/dL Creatinine (0.8-1.3) mg/dL Glucose (75-100) mg/dL POC Glucose (70-105) mg/dL ALT (7-56) units/L Troponin T 0.070 H (0.00-0.029) ng/mL Albumin (3.9-5) g/dL Assessment and Plan Patient with a history of end-stage renal disease who will now need to initiate hemodialysis. He will need placement of a permacath for dialysis initiation. I the patient will need to have his left upper arm brachiobasilic fistula elevated and transposed prior to its access. Patient is in agreement. PermCath will be placed tomorrow morning.
[2020-11-20] MEDS ORDERED: METOPROLOL TARTRATE 50 MG TAB PO SCH (22:00)
[2020-11-21 01:57] LABS: Bacteria,Urine 1+ /HPF (Negative); Bilirubin,Urine NEG (Negative); Blood,Urine NEG (Negative); Color,Urine Yellow (Yellow); Hyaline Casts,Urine 1 /LPF; Mucus,Urine FEW /HPF; Urobilinogen,Urine < 2.0 mg/dL (<2.0)
[2020-11-21 05:21] LABS: Basophils % (Auto) 0.5 % (0.0-1.8); Eosinophils # (Auto) 0.1 K/mm3 (0.0-0.4); Eosinophils % (Auto) 0.7 % (0.0-4.3); Hematocrit 20.3 % (35.5-45.6); Hemoglobin 6.4 gm/dl (11.8-15.2); Lymphocytes # (Auto) 0.8 K/mm3 (1.2-5.4); Lymphocytes % (Auto) 11.1 % (13.4-35.0); Mean Corpuscular HGB Conc 31 % (32-34); Mean Corpuscular Volume 74 fl (84-94); Monocytes # (Auto) 0.4 K/mm3 (0.0-0.8); Monocytes % (Auto) 4.7 % (0.0-7.3); Platelet Count 272 K/mm3 (140-440); Red Blood Count 2.75 M/mm3 (3.65-5.03); Red Cell Distribution Width 18.6 % (13.2-15.2)
[2020-11-21] MEDS: HEPARIN 5,000 UNIT/1 ML VIAL SUB-Q SCH ×3 (05:42→20:59)
[2020-11-21] MEDS: NIFEdipine XL 90 MG TAB PO SCH (05:42)
[2020-11-21 05:50] LABS: Calcium 7.8 mg/dL (8.4-10.2)
[2020-11-21] MEDS ORDERED: REGADENOSON 0.4 MG/5 ML INJ IV ONE (07:24)
[2020-11-21] MEDS: cloNIDine 0.2 MG TAB PO SCH (08:31)
[2020-11-21] MEDS: hydrALAZINE 25 MG TAB PO SCH (08:31)
--- NOTE | 2020-11-21 09:57 | Progress Note ---
Assessment and Plan Echo reviewed - EF 55-60%, restrictive physiology, severe LVH, LA severely dilated, RA mildly dilated, trace AR, trace MR, mild TR, RVSP 42mmHg, trace ND. Lexiscan stress MPI this AM revealed no evidence of ischemia. Awaiting Permcath placement. Continue IV diuresis per Nephro recs for now until HD is initiated. Will start cutting back on antihypertensives given hypotension. Home regimen may be optimized gently pending hemodynamic response to HD. Pt seen in conjunction with Dr. Cleveland, who agrees with the assessment and plan of care. - Patient Problems (1) Acute heart failure with preserved ejection fraction (HFpEF) Current Visit: Yes Status: Acute (2) Acute on chronic renal failure Current Visit: Yes Status: Acute Qualifiers: Chronic kidney disease stage: unspecified stage Qualified Code(s): N17.9 - Acute kidney failure, unspecified; N18.9 - Chronic kidney disease, unspecified (3) Anemia Current Visit: Yes Status: Acute Qualifiers: Qualified Code(s): D64.9 - Anemia, unspecified (4) NSTEMI (non-ST elevated myocardial infarction) Current Visit: Yes Status: Acute Plan to address problem: Type 2 (5) Hypertension Current Visit: Yes Status: Chronic Qualifiers: Hypertension type: primary hypertension Qualified Code(s): I10 - Essential (primary) hypertension (6) H/O: CVA (cerebrovascular accident) Current Visit: Yes Status: Chronic (7) Medical non-compliance Current Visit: Yes Status: Chronic Subjective Date of service: 11/21/20 Principal diagnosis: ESRD Interval history: Seen in stress lab this AM. No cardiac complaints. Tele reviewed - SR 60s, no events overnight. Objective Last Vital Signs Temp 97.9 F 11/21/20 08:20 Pulse 66 11/21/20 08:31 Resp 16 11/21/20 08:20 BP 96/51 11/21/20 08:31 Pulse Ox 97 11/21/20 08:20 - Physical Examination General: No Apparent Distress HEENT: Positive: EOMI, Normocephaly, Mucus Membranes Moist Neck: Positive: neck supple, trachea midline Cardiac: Positive: Reg Rate and Rhythm, S1/S2 Lungs: Positive: Rales (bibasilar) Neuro: Positive: Grossly Intact Abdomen: Positive: Soft. Negative: Tender Skin: Negative: Rash Musculoskeletal: No Pain Extremities: Present: upper extr. pulses, lower extr. pulses, edema (trace RLE, 1+ LLE) - Labs and Meds CBC 11/21/20 Range/Units 04:21 WBC 7.6 (4.5-11.0) K/mm3 RBC 2.75 L (3.65-5.03) M/mm3 Hgb 6.4 L (11.8-15.2) gm/dl Hct 20.3 L (35.5-45.6) % Plt Count 272 (140-440) K/mm3 Lymph # (Auto) 0.8 L (1.2-5.4) K/mm3 [place] # (Auto) 0.4 (0.0-0.8) K/mm3 Eos # (Auto) 0.1 (0.0-0.4) K/mm3 Baso # (Auto) 0.0 (0.0-0.1) K/mm3 Comprehensive Metabolic Panel 11/21/20 Range/Units 04:21 Sodium 139 (137-145) mmol/L Potassium 3.5 L (3.6-5.0) mmol/L Chloride 105.0 (98-107) mmol/L Carbon Dioxide 21 L (22-30) mmol/L BUN 55 H (9-20) mg/dL Creatinine 4.6 H (0.8-1.3) mg/dL Glucose 97 (75-100) mg/dL Calcium 7.8 L (8.4-10.2) mg/dL - Imaging and Cardiology EKG: report reviewed, image reviewed Pharmacologic stress test: pending Echo: report reviewed (11/20/2020 - EF 55-60%, restrictive physiology, severe LVH, LA severely dilated, RA mildly dilated, trace AR, trace MR, mild TR, RVSP 42mmHg, trace ND) - Telemetry EKG Rhythm: Sinus Rhythm - EKG Sinus rhythms and dysrhythmias: sinus rhythm Chamber hypertrophy or enlargement: left ventricular hypertro
[2020-11-21] MEDS ORDERED: SODIUM CHLORIDE 0.9% 500 ML 500 ML IV SCH (10:00)
[2020-11-21] MEDS ORDERED: METOPROLOL TARTRATE 25 MG TAB PO SCH (10:00)
--- NOTE | 2020-11-21 10:30 | Progress Note ---
Assessment and Plan (1) Acute exacerbation of CHF (congestive heart failure) (2) Acute on chronic renal failure (3) Hypertension (4) Elevated troponin (5) CVA (cerebrovascular accident due to intracerebral hemorrhage) worsening kidney function is likely secondary to progression of CKD was evaluated by vascular yesterday, AVF is not functional, will need permcath due to advanced kidney, volume overload and oliguria, will initiate HD for clear ance and volume removal, first treatment today after permcath placement but will need to check bladder scan first due to large post void residual on renal US will hold clonidine lasix increased for 40 mg BID for now cont lasix, can increase if needed if no adequate UOP response renally dose meds strict I&O Tommy nunn MD [phone] Subjective Date of service: 11/21/20 Principal diagnosis: ESRD Interval history: low urine output, was in stress test today Objective - Vital Signs Vital signs: Vital Signs - 12hr 11/20/20 11/20/20 11/21/20 23:22 23:52 03:54 Temperature 97.8 F 98.1 F Pulse Rate 77 74 66 Pulse Rate [ Apical] Pulse Rate [ From Monitor] Respiratory 18 18 Rate Blood Pressure 145/88 119/70 100/53 O2 Sat by Pulse 97 95 Oximetry 11/21/20 11/21/20 11/21/20 04:00 04:12 08:00 Temperature Pulse Rate 74 Pulse Rate [ 67 Apical] Pulse Rate [ 67 From Monitor] Respiratory 17 Rate Blood Pressure O2 Sat by Pulse 97 96 Oximetry 11/21/20 11/21/20 08:20 08:31 Temperature 97.9 F Pulse Rate 64 66 Pulse Rate [ Apical] Pulse Rate [ From Monitor] Respiratory 16 Rate Blood Pressure 93/45 96/51 O2 Sat by Pulse 97 Oximetry - General Appearance General appearance: well-developed, well-nourished, appears stated age EENT: ATNC, PERRL Neck: no JVD Respiratory: Present: Decreased Breath Sounds Cardiology: regular, S1S2 Gastrointestinal: normoactive bowel sounds Integumentary: no rash, warm and dry Neurologic: no focal deficit, no asterixis, alert and oriented x3 Psychiatric: mood/affect appropriate, cooperative - Lab 11/21/20 04:21 11/21/20 04:21 Most recent lab results Calcium 7.8 mg/dL (8.4-10.2) L 11/21/20 04:21 Phosphorus 4.70 mg/dL (2.5-4.5) H 11/21/20 04:21 Magnesium 2.20 mg/dL (1.7-2.3) 11/21/20 04:21 Medications & Allergies - Medications Allergies/Adverse Reactions: Allergies No Known Allergies Allergy (Verified 11/19/20 20:35) Home Medications: Home Medications Medication Instructions Recorded Confirmed Last Taken Type Atorvastatin (Nf) [Lipitor] 10 mg PO QHS #30 tab 03/22/14 05/04/16 Unknown Rx Ciprofloxacin HCl [Ciprofloxacin 500 mg PO BID #14 tablet 05/06/16 Unknown Rx TAB] NIFEdipine XL [Procardia Xl] 90 mg PO QDAY 7 Days #7 tablet 09/13/18 Unknown Rx cloNIDine [Catapres] 0.2 mg PO TID 7 Days #21 tablet 09/13/18 Unknown Rx hydrALAZINE [Apresoline TAB] 100 mg PO TID 7 Days #21 tablet 09/13/18 Unknown Rx Active Medications: Generic Name Dose Route Start Last Admin Trade Name Freq PRN Reason Stop Dose Admin Acetaminophen 650 mg 11/20/20 01:43 Acetaminophen 325 Mg Tab PO Q4H PRN Pain MILD(1-3)/Fever >100.5/SINGLETARY Albuterol 2.5 mg 11/20/20 01:43 Albuterol 2.5 Mg/3 Ml Nebu IH Q4HRT PRN Shortness Of Breath Aspirin 81 mg 11/20/20 10:00 11/20/20 13:19 Aspirin 81 Mg Tab Chew PO 81 mg QDAY JOSE Administration Atorvastatin Calcium 40 mg 11/20/20 22:00 11/20/20 21:47 Atorvastatin 40 Mg Tab PO 40 mg QHS JOSE Administration Famotidine 20 mg 11/20/20 10:00 11/20/20 13:19 Famotidine 20 Mg Tab PO 20 mg QAM JOSE Administration Furosemide 40 mg 11/21/20 11:00 Furosemide 20 Mg/2 Ml Inj IV BID JOSE Heparin Sodium (Porcine) 5,000 unit 11/20/20 06:00 11/21/20 05:42 Heparin 5,000 Unit/1 Ml Vial SUB-Q 5,000 unit Q8HR JOSE Administration Hydralazine HCl 10 mg 11/20/20 01:55 Hydralazine 20 Mg/1 Ml Inj IV Q6H PRN Blood Pressure Sodium Chloride 500 mls @ 0 mls/hr 11/21/20 10:00 Nacl 0.9% 500 Ml IV 11/21/20 19:00 ONCE JOSE As Directed Metoprolol Tartrate 12.5 mg 11/21/20 10:00 Metoprolol Tartrate 25 Mg Tab PO BID JOSE Morphine Sulfate 2 mg 11/20/20 01:43 11/20/20 02:12 Morphine 2 Mg/1 Ml Inj IV 2 mg Q4H PRN Administration Pain, Moderate (4-6) Nitroglycerin 0.4 mg 11/20/20 01:43 Nitroglycerin 0.4 Mg Tab Subl SL .Q5MIN PRN Chest Pain Ondansetron HCl 4 mg 11/20/20 01:43 Ondansetron 4 Mg/2 Ml Inj IV Q8H PRN Nausea And Vomiting Sodium Chloride 10 ml 11/20/20 10:00 11/20/20 21:48 Sodium Chloride 0.9% 10 Ml Flush Syringe IV 10 ml BID JOSE Administration Sodium Chloride 10 ml 11/20/20 01:43 Sodium Chloride 0.9% 10 Ml Flush Syringe IV PRN PRN LINE FLUSH
[2020-11-21] MEDS ORDERED: FUROSEMIDE 20 MG/2 ML INJ IV SCH (11:00)
--- NOTE | 2020-11-21 12:29 | Progress Note ---
Assessment and Plan Assessment and plan: Assessment and Plan: 45-year-old -Turkish male who presents with stage V renal disease - Patient Problems Acute exacerbation of CHF (congestive heart failure) Current Visit: Yes Status: Acute Plan to address problem: Echocardiogram LVEF of 55 to 60% Cardiology consulted Hold Lasix 40 mg twice daily Acute on chronic renal failure stage V Current Visit: Yes Status: Acute Plan to address problem: Nephrology consulted creatinine with slight improvement Hold off on permacath, check bladder ultrasound Urinary retention Bladder scan showing 590 cc of urinary retention Difficult to place Castle catheter Hold Lasix for now Repeat renal ultrasound Urology has been consulted, recommend dialysis, if worsens, patient may need suprapubic cath Hypertension Current Visit: Yes Status: Acute Plan to address problem: Hydralazine 10 mg IV every 6 hours as needed. Continue clonidine and nifedipine for recommendations of cardiology/nephrology NSTEMI type II Current Visit: Yes Status: Acute Plan to address problem: Most likely secondary to uncontrolled hypertension in addition to chronic kidney disease Patient asymptomatic, no chest pain Cardiology consulted Control blood pressure with, hydralazine, nifedipine CVA (cerebrovascular accident due to intracerebral hemorrhage) Current Visit: No Status: Acute Plan to address problem: Stable. Continue aspirin 81 mg p.o. daily. Lipitor 40 mg p.o. daily DVT prophylaxis Current Visit: Yes Status: Acute Plan to address problem: Heparin 5000 units subcu every 8 hours for DVT prophylaxis. Pepcid 20 mg p.o. twice daily for GI prophylaxis. Patient is a full code Disposition: Renal ultrasound, hold Lasix, reevaluate urinary retention History Interval history: 11/20/2020: Patient seen and examined, eating breakfast, no chest pain, no shortness of breath, complains of lower extremity pain and swelling. 11/21/2020: Patient seen and examined, came back from stress test, hemoglobin low, will give blood transfusion. Per nursing staff, patient was bladder scanned, has 573 cc retention. Attempted to Castle cath the patient, was not able to. Patient states has been trying to urinate since last night. Advised nurse to attempt a Castle catheter again. Hospitalist Physical - Physical exam Narrative exam: General appearance: no acute distress, well-nourished EENT: PERRL, EOM intact, hearing intact, clear oral mucosa Respiratory: bilateral CTA, negative: rales, rhonchi, wheezing Cardiovascular: Regular rate/rhythm, Normal S1 & S2. No gallop, rub Extremities: No ischemia in lower extremities, +1 pitting edema bilaterally Abdominal: soft, no tenderness, non-distended, normal bowel sounds Integumentary: Present: clear, warm, dry no wounds, no erythema noted Psychiatric: appropriate mood/affect, intact judgment & insight Neurologic: CNII-XII intact, moves all extremities, no sensory or motor abnormalities - Constitutional Vitals: Temp Pulse Resp BP Pulse Ox 97.3 F L 78 17 123/75 98 11/21/20 12:05 11/21/20 12:05 11/21/20 12:05 11/21/20 12:05 11/21/20 12:05 HEART Score - HEART Score Troponin: Troponin T 0.070 ng/mL (0.00-0.029) H 11/19/20 21:16 Results - Labs CBC & Chem 7: 11/21/20 04:21 11/21/20 04:21 Labs: Laboratory Last Values WBC 7.6 K/mm3 (4.5-11.0) 11/21/20 04:21 RBC 2.75 M/mm3 (3.65-5.03) L 11/21/20 04:21 Hgb 6.4 gm/dl (11.8-15.2) L 11/21/20 04:21 Hct 20.3 % (35.5-45.6) L 11/21/20 04:21 MCV 74 fl (84-94) L 11/21/20 04:21 MCH 23 pg (28-32) L 11/21/20 04:21 MCHC 31 % (32-34) L 11/21/20 04:21 RDW 18.6 % (13.2-15.2) H 11/21/20 04:21 Plt Count 272 K/mm3 (140-440) 11/21/20 04:21 Lymph % (Auto) 11.1 % (13.4-35.0) L 11/21/20 04:21 [place] % (Auto) 4.7 % (0.0-7.3) 11/21/20 04:21 Eos % (Auto) 0.7 % (0.0-4.3) 11/21/20 04:21 Baso % (Auto) 0.5 % (0.0-1.8) 11/21/20 04:21 Lymph # (Auto) 0.8 K/mm3 (1.2-5.4) L 11/21/20 04:21 [place] # (Auto) 0.4 K/mm3 (0.0-0.8) 11/21/20 04:21 Eos # (Auto) 0.1 K/mm3 (0.0-0.4) 11/21/20 04:21 Baso # (Auto) 0.0 K/mm3 (0.0-0.1) 11/21/20 04:21 Seg Neutrophils % 83.0 % (40.0-70.0) H 11/21/20 04:21 Seg Neutrophils # 6.3 K/mm3 (1.8-7.7) 11/21/20 04:21 Sodium 139 mmol/L (137-145) 11/21/20 04:21 Potassium 3.5 mmol/L (3.6-5.0) L 11/21/20 04:21 Chloride 105.0 mmol/L (98-107) 11/21/20 04:21 Carbon Dioxide 21 mmol/L (22-30) L 11/21/20 04:21 Anion Gap 17 mmol/L 11/21/20 04:21 BUN 55 mg/dL (9-20) H 11/21/20 04:21 Creatinine 4.6 mg/dL (0.8-1.3) H 11/21/20 04:21 Estimated GFR 17 ml/min 11/21/20 04:21 BUN/Creatinine Ratio 12 % 11/21/20 04:21 Glucose 97 mg/dL (75-100) 11/21/20 04:21 POC Glucose 130 mg/dL (70-105) H 11/19/20 19:39 Hemoglobin A1c < 4.0 % (4-6) L 11/21/20 04:21 Calcium 7.8 mg/dL (8.4-10.2) L 11/21/20 04:21 Phosphorus 4.70 mg/dL (2.5-4.5) H 11/21/20 04:21 Magnesium 2.20 mg/dL (1.7-2.3) 11/21/20 04:21 Iron 11 ug/dL (49-181) L 11/21/20 04:21 TIBC 239 mcg/dL (250-450) L 11/21/20 04:21 Total Bilirubin 0.50 mg/dL (0.1-1.2) 11/19/20 19:54 AST 40 units/L (5-40) 11/19/20 19:54 ALT 82 units/L (7-56) H 11/19/20 19:54 Alkaline Phosphatase 80 units/L (35-129) 11/19/20 19:54 Troponin T 0.070 ng/mL (0.00-0.029) H 11/19/20 21:16 Total Protein 6.5 g/dL (6.3-8.2) 11/19/20 19:54 Albumin 3.3 g/dL (3.9-5) L 11/19/20 19:54 Albumin/Globulin Ratio 1.0 % 11/19/20 19:54 Triglycerides 74 mg/dL (2-149) 11/19/20 19:54 Cholesterol 126 mg/dL (50-199) 11/19/20 19:54 LDL Cholesterol Direct 78 mg/dL (50-130) 11/19/20 19:54 HDL Cholesterol 43 mg/dL (40-59) 11/19/20 19:54 Cholesterol/HDL Ratio 2.93 % 11/19/20 19:54 Urine Color Yellow (Yellow) 11/21/20 01:41 Urine Turbidity Cloudy (Clear) 11/21/20 01:41 Urine pH 8.0 (5.0-7.0) H 11/21/20 01:41 Ur Specific [place] 1.009 (1.003-1.030) 11/21/20 01:41 Urine Protein 100 mg/dl mg/dL (Negative) 11/21/20 01:41 Urine Glucose (UA) Neg mg/dL (Negative) 11/21/20 01:41 Urine Ketones Neg mg/dL (Negative) 11/21/20 01:41 Urine Blood Neg (Negative) 11/21/20 01:41 Urine Nitrite Neg (Negative) 11/21/20 01:41 Urine Bilirubin Neg (Negative) 11/21/20 01:41 Urine Urobilinogen < 2.0 mg/dL (<2.0) 11/21/20 01:41 Ur Leukocyte Esterase Sm (Negative) 11/21/20 01:41 Urine WBC (Auto) 45.0 /HPF (0.0-6.0) H 11/21/20 01:41 Urine RBC (Auto) 1.0 /HPF (0.0-6.0) 11/21/20 01:41 U Epithel Cells (Auto) 2.0 /HPF (0-13.0) 11/21/20 01:41 Urine Bacteria (Auto) 1+ /HPF (Negative) 11/21/20 01:41 Hyaline Casts 1 /LPF 11/21/20 01:41 Urine Mucus Few /HPF 11/21/20 01:41 [place]/IV: Voiding Method Urinal Active Medications - Current Medications Current Medications: Generic Name Dose Route Start Last Admin Trade Name Freq PRN Reason Stop Dose Admin Acetaminophen 650 mg 11/20/20 01:43 Acetaminophen 325 Mg Tab PO Q4H PRN Pain MILD(1-3)/Fever >100.5/SINGLETARY Albuterol 2.5 mg 11/20/20 01:43 Albuterol 2.5 Mg/3 Ml Nebu IH Q4HRT PRN Shortness Of Breath Aspirin 81 mg 11/20/20 10:00 11/20/20 13:19 Aspirin 81 Mg Tab Chew PO 81 mg QDAY JOSE Administration Atorvastatin Calcium 40 mg 11/20/20 22:00 11/20/20 21:47 Atorvastatin 40 Mg Tab PO 40 mg QHS JOSE Administration Famotidine 20 mg 11/20/20 10:00 11/20/20 13:19 Famotidine 20 Mg Tab PO 20 mg QAM JOSE Administration Furosemide 40 mg 11/21/20 11:00 Furosemide 40 Mg/4 Ml Inj IV BID JOSE Heparin Sodium (Porcine) 5,000 unit 11/20/20 06:00 11/21/20 05:42 Heparin 5,000 Unit/1 Ml Vial SUB-Q 5,000 unit Q8HR JOSE Administration Hydralazine HCl 10 mg 11/20/20 01:55 Hydralazine 20 Mg/1 Ml Inj IV Q6H PRN Blood Pressure Sodium Chloride 500 mls @ 0 mls/hr 11/21/20 10:00 Nacl 0.9% 500 Ml IV 11/21/20 19:00 ONCE JOSE As Directed Morphine Sulfate 2 mg 11/20/20 01:43 11/20/20 02:12 Morphine 2 Mg/1 Ml Inj IV 2 mg Q4H PRN Administration Pain, Moderate (4-6) Nitroglycerin 0.4 mg 11/20/20 01:43 Nitroglycerin 0.4 Mg Tab Subl SL .Q5MIN PRN Chest Pain Ondansetron HCl 4 mg 11/20/20 01:43 Ondansetron 4 Mg/2 Ml Inj IV Q8H PRN Nausea And Vomiting Sodium Chloride 10 ml 11/20/20 10:00 11/20/20 21:48 Sodium Chloride 0.9% 10 Ml Flush Syringe IV 10 ml BID JOSE Administration Sodium Chloride 10 ml 11/20/20 01:43 Sodium Chloride 0.9% 10 Ml Flush Syringe IV PRN PRN LINE FLUSH
[2020-11-21] MEDS: FAMOTIDINE 20 MG TAB PO SCH (14:37)
[2020-11-21] MEDS: FUROSEMIDE 40 MG/4 ML INJ IV SCH ×2 (14:37→21:01)
[2020-11-21] MEDS: ASPIRIN 81 MG TAB CHEW PO SCH (14:37)
[2020-11-21] MEDS: TAMSULOSIN 0.4 MG CAP PO SCH (15:22)
[2020-11-21 17:40] LABS: Protein/Creatinine Ratio,Urine 0.54
[2020-11-21] MEDS ORDERED: cloNIDine 0.2 MG TAB PO SCH (22:00)
[2020-11-22] MEDS: hydrALAZINE 20 MG/1 ML INJ IV PRN ×3 (00:30→17:31)
[2020-11-22 00:56] LABS: Creatinine,Urine 65.7 mg/dL (0.1-20.0)
[2020-11-22 01:14] LABS: Patient Weight,Urine 179.5 lbs
[2020-11-22 05:55] LABS: Basophils % (Auto) 0.3 % (0.0-1.8); Eosinophils % (Auto) 0.2 % (0.0-4.3); Hematocrit 24.7 % (35.5-45.6); Hemoglobin 7.8 gm/dl (11.8-15.2); Lymphocytes # (Auto) 1.1 K/mm3 (1.2-5.4); Lymphocytes % (Auto) 11.1 % (13.4-35.0); Mean Corpuscular HGB Conc 32 % (32-34); Mean Corpuscular Volume 75 fl (84-94); Monocytes # (Auto) 0.5 K/mm3 (0.0-0.8); Monocytes % (Auto) 5.2 % (0.0-7.3); Platelet Count 313 K/mm3 (140-440); Red Blood Count 3.31 M/mm3 (3.65-5.03); Red Cell Distribution Width 18.5 % (13.2-15.2)
[2020-11-22] MEDS: HEPARIN 5,000 UNIT/1 ML VIAL SUB-Q SCH ×3 (06:03→21:37)
[2020-11-22 06:22] LABS: Calcium 8.2 mg/dL (8.4-10.2)
[2020-11-22 06:28] LABS: Hepatitis B Surface Antigen Non-Reactive (Negative); Hepatitis C Virus Antibody Non-Reactive (NonReactive)
[2020-11-22] MEDS: FUROSEMIDE 20 MG/2 ML INJ IV SCH (07:46)
--- NOTE | 2020-11-22 09:07 | Progress Note ---
Assessment and Plan 45-year-old male with history of hypertension end-stage renal disease requiring hemodialysis but patient is refused history of noncompliance. Abnormal troponin in the setting of acute renal failure non-STEMI type II has normal myocardial perfusion. With normal LV function on echocardiogram. Patient needs blood pressure control patient is awaiting permacath and chronic dialysis. Patient will be seen as needed - Patient Problems (1) Acute heart failure with preserved ejection fraction (HFpEF) Current Visit: Yes Status: Resolved (2) Acute on chronic renal failure Current Visit: Yes Status: Acute Qualifiers: Chronic kidney disease stage: stage 5, not on chronic dialysis Qualified Code(s): N17.9 - Acute kidney failure, unspecified; N18.9 - Chronic kidney disease, unspecified (3) Hypertensive emergency Current Visit: Yes Status: Acute (4) NSTEMI (non-ST elevated myocardial infarction) Current Visit: Yes Status: Acute Plan to address problem: type 2 (5) Medical non-compliance Current Visit: Yes Status: Chronic Subjective Date of service: 11/22/20 Principal diagnosis: ESRD Interval history: Patient laying in the bed flat affect denies any chest pain Objective Vital Signs Temp Pulse Resp BP BP Pulse Ox 11/22/20 08:16 97.5 F L 99 H 18 185/102 97 11/22/20 06:02 101 H 174/95 11/22/20 03:47 98.1 F 101 H 18 174/95 95 11/22/20 00:30 101 H 174/95 11/21/20 22:31 97.8 F 92 H 16 177/88 95 11/21/20 20:45 98.1 F 99 H 18 160/69 95 11/21/20 20:15 98.2 F 84 18 150/84 98 11/21/20 20:00 97 H 11/21/20 19:45 98 F 88 18 169/84 98 11/21/20 19:15 89 17 158/96 95 11/21/20 18:45 98 F 85 17 161/90 97 11/21/20 18:15 97.9 F 87 15 160/95 97 11/21/20 17:45 98.0 F 67 17 150/87 95 11/21/20 17:30 98.1 F 78 17 148/74 95 11/21/20 16:06 98.0 F 65 16 131/74 97 11/21/20 12:05 97.3 F L 78 17 123/75 98 11/21/20 12:00 67 11/21/20 10:37 115/61 11/21/20 10:35 106/67 11/21/20 10:33 100/61 11/21/20 10:32 101/59 11/21/20 10:31 113/63 11/21/20 10:24 116/74 11/21/20 10:23 116/71 11/21/20 10:18 113/72 - Physical Examination General: No Apparent Distress HEENT: Positive: EOMI, Normocephaly, Mucus Membranes Moist Neck: Positive: neck supple, trachea midline Cardiac: Positive: Reg Rate and Rhythm Lungs: Positive: clear to auscultation Neuro: Positive: Grossly Intact Abdomen: Positive: Soft. Negative: Tender Skin: Negative: Rash Musculoskeletal: No Pain Extremities: Present: upper extr. pulses, lower extr. pulses, edema (trace RLE, 1+ LLE) - Labs and Meds CBC 11/22/20 Range/Units 04:48 WBC 10.3 (4.5-11.0) K/mm3 RBC 3.31 L (3.65-5.03) M/mm3 Hgb 7.8 L (11.8-15.2) gm/dl Hct 24.7 L (35.5-45.6) % Plt Count 313 (140-440) K/mm3 Lymph # (Auto) 1.1 L (1.2-5.4) K/mm3 [place] # (Auto) 0.5 (0.0-0.8) K/mm3 Eos # (Auto) 0.0 (0.0-0.4) K/mm3 Baso # (Auto) 0.0 (0.0-0.1) K/mm3 Comprehensive Metabolic Panel 11/22/20 Range/Units 04:48 Sodium 144 (137-145) mmol/L Potassium 3.4 L (3.6-5.0) mmol/L Chloride 107.1 H (98-107) mmol/L Carbon Dioxide 22 (22-30) mmol/L BUN 55 H (9-20) mg/dL Creatinine 4.6 H (0.8-1.3) mg/dL Glucose 96 (75-100) mg/dL Calcium 8.2 L (8.4-10.2) mg/dL - Imaging and Cardiology EKG: report reviewed, image reviewed Pharmacologic stress test: report reviewed (Normal myocardial perfusion no significant ischemia) Echo: report reviewed (11/20/2020 - EF 55-60%, restrictive physiology, severe LVH, LA severely dilated, RA mildly dilated, trace AR, trace MR, mild TR, RVSP 42mmHg, trace MD) - Telemetry EKG Rhythm: Sinus Rhythm - EKG Sinus rhythms and dysrhythmias: sinus rhythm Chamber hypertrophy or enlargement: left ventricular hypertro
[2020-11-22] MEDS: ASPIRIN 81 MG TAB CHEW PO SCH (09:24)
[2020-11-22] MEDS: FUROSEMIDE 40 MG/4 ML INJ IV SCH ×2 (09:24→21:37)
[2020-11-22] MEDS: FAMOTIDINE 20 MG TAB PO SCH (09:24)
[2020-11-22] MEDS: TAMSULOSIN 0.4 MG CAP PO SCH (09:24)
--- NOTE | 2020-11-22 10:24 | Progress Note ---
Assessment and Plan (1) Acute exacerbation of CHF (congestive heart failure) (2) Acute on chronic renal failure (3) Hypertension (4) Elevated troponin (5) CVA (cerebrovascular accident due to intracerebral hemorrhage) worsening kidney function is likely secondary to progression of CKD now with better urine ouput and stabel Cr and BUN, Cr clearance was 14 ml/min, however, no acute indiction for HD, will cont to monitor cont lasxi 40 mg BID, can increase if needed renally dose meds strict I&O Tommy nunn MD [phone] Subjective Date of service: 11/22/20 Principal diagnosis: ESRD Interval history: better urine out today Objective - Vital Signs Vital signs: Vital Signs - 12hr 11/21/20 11/22/20 11/22/20 22:31 00:30 03:47 Temperature 97.8 F 98.1 F Pulse Rate 92 H 101 H 101 H Respiratory 16 18 Rate Blood Pressure 177/88 174/95 174/95 O2 Sat by Pulse 95 95 Oximetry 11/22/20 11/22/20 11/22/20 06:02 08:16 09:24 Temperature 97.5 F L Pulse Rate 101 H 99 H Respiratory 18 Rate Blood Pressure 174/95 185/102 185/102 O2 Sat by Pulse 97 Oximetry - Lab 11/22/20 04:48 11/22/20 04:48 Most recent lab results Calcium 8.2 mg/dL (8.4-10.2) L 11/22/20 04:48 Phosphorus 4.00 mg/dL (2.5-4.5) 11/22/20 04:48 Magnesium 2.20 mg/dL (1.7-2.3) 11/21/20 04:21 Urine Creatinine 102.0 mg/dL (0.1-20.0) H 11/21/20 Unknown Urine Total Protein 55 mg/dL (5-11.8) H 11/21/20 Unknown Medications & Allergies - Medications Allergies/Adverse Reactions: Allergies No Known Allergies Allergy (Verified 11/19/20 20:35) Home Medications: Home Medications Medication Instructions Recorded Confirmed Last Taken Type Atorvastatin (Nf) [Lipitor] 10 mg PO QHS #30 tab 03/22/14 05/04/16 Unknown Rx Ciprofloxacin HCl [Ciprofloxacin 500 mg PO BID #14 tablet 05/06/16 Unknown Rx TAB] NIFEdipine XL [Procardia Xl] 90 mg PO QDAY 7 Days #7 tablet 09/13/18 Unknown Rx cloNIDine [Catapres] 0.2 mg PO TID 7 Days #21 tablet 09/13/18 Unknown Rx hydrALAZINE [Apresoline TAB] 100 mg PO TID 7 Days #21 tablet 09/13/18 Unknown Rx Active Medications: Generic Name Dose Route Start Last Admin Trade Name Freq PRN Reason Stop Dose Admin Acetaminophen 650 mg 11/20/20 01:43 Acetaminophen 325 Mg Tab PO Q4H PRN Pain MILD(1-3)/Fever >100.5/SINGLETARY Albuterol 2.5 mg 11/20/20 01:43 Albuterol 2.5 Mg/3 Ml Nebu IH Q4HRT PRN Shortness Of Breath Aspirin 81 mg 11/20/20 10:00 11/22/20 09:24 Aspirin 81 Mg Tab Chew PO 81 mg QDAY JOSE Administration Atorvastatin Calcium 40 mg 11/20/20 22:00 11/21/20 21:00 Atorvastatin 40 Mg Tab PO 40 mg QHS JOSE Administration Famotidine 20 mg 11/20/20 10:00 11/22/20 09:24 Famotidine 20 Mg Tab PO 20 mg QAM JOSE Administration Furosemide 40 mg 11/21/20 11:00 11/22/20 09:24 Furosemide 40 Mg/4 Ml Inj IV 40 mg BID JOSE Administration Heparin Sodium (Porcine) 5,000 unit 11/20/20 06:00 11/22/20 06:03 Heparin 5,000 Unit/1 Ml Vial SUB-Q 5,000 unit Q8HR JOSE Administration Hydralazine HCl 10 mg 11/20/20 01:55 11/22/20 06:02 Hydralazine 20 Mg/1 Ml Inj IV 10 mg Q6H PRN Administration Blood Pressure Morphine Sulfate 2 mg 11/20/20 01:43 11/20/20 02:12 Morphine 2 Mg/1 Ml Inj IV 2 mg Q4H PRN Administration Pain, Moderate (4-6) Nitroglycerin 0.4 mg 11/20/20 01:43 Nitroglycerin 0.4 Mg Tab Subl SL .Q5MIN PRN Chest Pain Ondansetron HCl 4 mg 11/20/20 01:43 Ondansetron 4 Mg/2 Ml Inj IV Q8H PRN Nausea And Vomiting Sodium Chloride 10 ml 11/20/20 10:00 11/22/20 09:25 Sodium Chloride 0.9% 10 Ml Flush Syringe IV 10 ml BID JOSE Administration Sodium Chloride 10 ml 11/20/20 01:43 Sodium Chloride 0.9% 10 Ml Flush Syringe IV PRN PRN LINE FLUSH Tamsulosin HCl 0.8 mg 11/21/20 15:00 11/22/20 09:24 Tamsulosin 0.4 Mg Cap PO 0.8 mg QDAY JOSE Administration
--- NOTE | 2020-11-22 10:34 | Progress Note ---
Assessment and Plan Assessment and plan: Assessment and Plan: 45-year-old -[place] male who presents with stage V renal disease - Patient Problems Acute exacerbation of CHF (congestive heart failure) Current Visit: Yes Status: Acute Plan to address problem: Echocardiogram LVEF of 55 to 60% Cardiology consulted continueLasix 40 mg twice daily Cardiac stress test without any signs of ischemia Acute on chronic renal failure stage V Current Visit: Yes Status: Acute Plan to address problem: Nephrology consulted creatinine with slight improvement No signs for permacath placement No signs for hemodialysis at this time per nephrology Anemia secondary to renal disease Transfusions x1 Hemoglobin stabilized Urinary retention, resolved Bladder scan showing 590 cc of urinary retention Difficult to place Castle catheter Flomax started Patient with better urine output Continue furosemide 40 mg twice daily Hypertension Current Visit: Yes Status: Acute Plan to address problem: Hydralazine 10 mg IV every 6 hours as needed. Start p.o. hydralazine 100 mg twice daily NSTEMI type II Current Visit: Yes Status: Acute Plan to address problem: Most likely secondary to uncontrolled hypertension in addition to chronic kidney disease Patient asymptomatic, no chest pain Cardiology consulted Control blood pressure with hydralazine CVA (cerebrovascular accident due to intracerebral hemorrhage) Current Visit: No Status: Acute Plan to address problem: Stable. Continue aspirin 81 mg p.o. daily. Lipitor 40 mg p.o. daily DVT prophylaxis Current Visit: Yes Status: Acute Plan to address problem: Heparin 5000 units subcu every 8 hours for DVT prophylaxis. Pepcid 20 mg p.o. twice daily for GI prophylaxis. Patient is a full code Disposition: Continue diuresis, continue blood pressure control. History Interval history: 11/20/2020: Patient seen and examined, eating breakfast, no chest pain, no shortness of breath, complains of lower extremity pain and swelling. 11/21/2020: Patient seen and examined, came back from stress test, hemoglobin low, will give blood transfusion. Per nursing staff, patient was bladder scanned, has 573 cc retention. Attempted to Castle cath the patient, was not able to. Patient states has been trying to urinate since last night. Advised nurse to attempt a Castle catheter again. 11/22/2020: Patient seen and examined, urine output good overnight with Flomax. Blood pressure continues to be elevated. Will add hydralazine. Spoke with cardiology, recommendations noted and appreciated. Hospitalist Physical - Physical exam Narrative exam: General appearance: no acute distress, well-nourished EENT: PERRL, EOM intact, hearing intact, clear oral mucosa Respiratory: bilateral CTA, negative: rales, rhonchi, wheezing Cardiovascular: Regular rate/rhythm, Normal S1 & S2. No gallop, rub Extremities: No ischemia in lower extremities, +1 pitting edema bilaterally Abdominal: soft, no tenderness, non-distended, normal bowel sounds Integumentary: Present: clear, warm, dry no wounds, no erythema noted Psychiatric: appropriate mood/affect, intact judgment & insight Neurologic: CNII-XII intact, moves all extremities, no sensory or motor a bnormalities - Constitutional Vitals: Temp Pulse Resp BP Pulse Ox 97.5 F L 99 H 18 185/102 97 11/22/20 08:16 11/22/20 08:16 11/22/20 08:16 11/22/20 09:24 11/22/20 08:16 General appearance: Present: no acute distress HEART Score - HEART Score Troponin: Troponin T 0.070 ng/mL (0.00-0.029) H 11/19/20 21:16 Results - Labs CBC & Chem 7: 11/22/20 04:48 11/22/20 04:48 Labs: Laboratory Last Values WBC 10.3 K/mm3 (4.5-11.0) 11/22/20 04:48 RBC 3.31 M/mm3 (3.65-5.03) L 11/22/20 04:48 Hgb 7.8 gm/dl (11.8-15.2) L 11/22/20 04:48 Hct 24.7 % (35.5-45.6) L 11/22/20 04:48 MCV 75 fl (84-94) L 11/22/20 04:48 MCH 24 pg (28-32) L 11/22/20 04:48 MCHC 32 % (32-34) 11/22/20 04:48 RDW 18.5 % (13.2-15.2) H 11/22/20 04:48 Plt Count 313 K/mm3 (140-440) 11/22/20 04:48 Lymph % (Auto) 11.1 % (13.4-35.0) L 11/22/20 04:48 [place] % (Auto) 5.2 % (0.0-7.3) 11/22/20 04:48 Eos % (Auto) 0.2 % (0.0-4.3) 11/22/20 04:48 Baso % (Auto) 0.3 % (0.0-1.8) 11/22/20 04:48 Lymph # (Auto) 1.1 K/mm3 (1.2-5.4) L 11/22/20 04:48 [place] # (Auto) 0.5 K/mm3 (0.0-0.8) 11/22/20 04:48 Eos # (Auto) 0.0 K/mm3 (0.0-0.4) 11/22/20 04:48 Baso # (Auto) 0.0 K/mm3 (0.0-0.1) 11/22/20 04:48 Seg Neutrophils % 83.2 % (40.0-70.0) H 11/22/20 04:48 Seg Neutrophils # 8.5 K/mm3 (1.8-7.7) H 11/22/20 04:48 Sodium 144 mmol/L (137-145) 11/22/20 04:48 Potassium 3.4 mmol/L (3.6-5.0) L 11/22/20 04:48 Chloride 107.1 mmol/L (98-107) H 11/22/20 04:48 Carbon Dioxide 22 mmol/L (22-30) 11/22/20 04:48 Anion Gap 18 mmol/L 11/22/20 04:48 BUN 55 mg/dL (9-20) H 11/22/20 04:48 Creatinine 4.6 mg/dL (0.8-1.3) H 11/22/20 04:48 Estimated GFR 17 ml/min 11/22/20 04:48 BUN/Creatinine Ratio 12 % 11/22/20 04:48 Glucose 96 mg/dL (75-100) 11/22/20 04:48 POC Glucose 130 mg/dL (70-105) H 11/19/20 19:39 Hemoglobin A1c < 4.0 % (4-6) L 11/21/20 04:21 Calcium 8.2 mg/dL (8.4-10.2) L 11/22/20 04:48 Phosphorus 4.00 mg/dL (2.5-4.5) 11/22/20 04:48 Magnesium 2.20 mg/dL (1.7-2.3) 11/21/20 04:21 Iron 11 ug/dL (49-181) L 11/21/20 04:21 TIBC 239 mcg/dL (250-450) L 11/21/20 04:21 Total Bilirubin 0.50 mg/dL (0.1-1.2) 11/19/20 19:54 AST 40 units/L (5-40) 11/19/20 19:54 ALT 82 units/L (7-56) H 11/19/20 19:54 Alkaline Phosphatase 80 units/L (35-129) 11/19/20 19:54 Troponin T 0.070 ng/mL (0.00-0.029) H 11/19/20 21:16 Total Protein 6.5 g/dL (6.3-8.2) 11/19/20 19:54 Albumin 3.3 g/dL (3.9-5) L 11/19/20 19:54 Albumin/Globulin Ratio 1.0 % 11/19/20 19:54 Triglycerides 74 mg/dL (2-149) 11/19/20 19:54 Cholesterol 126 mg/dL (50-199) 11/19/20 19:54 LDL Cholesterol Direct 78 mg/dL (50-130) 11/19/20 19:54 HDL Cholesterol 43 mg/dL (40-59) 11/19/20 19:54 Cholesterol/HDL Ratio 2.93 % 11/19/20 19:54 Urine Color Yellow (Yellow) 11/21/20 01:41 Urine Turbidity Cloudy (Clear) 11/21/20 01:41 Urine pH 8.0 (5.0-7.0) H 11/21/20 01:41 Ur Specific [place] 1.009 (1.003-1.030) 11/21/20 01:41 Urine Protein 100 mg/dl mg/dL (Negative) 11/21/20 01:41 Urine Glucose (UA) Neg mg/dL (Negative) 11/21/20 01:41 Urine Ketones Neg mg/dL (Negative) 11/21/20 01:41 Urine Blood Neg (Negative) 11/21/20 01:41 Urine Nitrite Neg (Negative) 11/21/20 01:41 Urine Bilirubin Neg (Negative) 11/21/20 01:41 Urine Urobilinogen < 2.0 mg/dL (<2.0) 11/21/20 01:41 Ur Leukocyte Esterase Sm (Negative) 11/21/20 01:41 Urine WBC (Auto) 45.0 /HPF (0.0-6.0) H 11/21/20 01:41 Urine RBC (Auto) 1.0 /HPF (0.0-6.0) 11/21/20 01:41 U Epithel Cells (Auto) 2.0 /HPF (0-13.0) 11/21/20 01:41 Urine Bacteria (Auto) 1+ /HPF (Negative) 11/21/20 01:41 Hyaline Casts 1 /LPF 11/21/20 01:41 Urine Mucus Few /HPF 11/21/20 01:41 Urine Total Volume 1700 ml 11/21/20 11:56 Urine Creatinine 102.0 mg/dL (0.1-20.0) H 11/21/20 Unknown Height (in) 71.0 inches 11/21/20 11:56 Weight (lb) 179.5 lbs 11/21/20 11:56 Creatinine Clearance 14 11/21/20 11:56 Protein/Creatinin Ratio 0.54 11/21/20 Unknown Urine Total Protein 55 mg/dL (5-11.8) H 11/21/20 Unknown Hepatitis A IgM Ab Non-reactive (NonReactive) 11/22/20 04:48 Hep Bs Antigen Non-reactive (Negative) 11/22/20 04:48 Hep B Core IgM Ab Non-reactive (NonReactive) 11/22/20 04:48 Hepatitis C Antibody Non-reactive (NonReactive) 11/22/20 04:48 Blood Type A POSITIVE 11/21/20 12:30 Antibody Screen Negative 11/21/20 12:30 Crossmatch See Detail 11/21/20 12:30 [place]/IV: Voiding Method Urinal Active Medications - Current Medications Current Medications: Generic Name Dose Route Start Last Admin Trade Name Freq PRN Reason Stop Dose Admin Acetaminophen 650 mg 11/20/20 01:43 Acetaminophen 325 Mg Tab PO Q4H PRN Pain MILD(1-3)/Fever >100.5/SINGLETARY Albuterol 2.5 mg 11/20/20 01:43 Albuterol 2.5 Mg/3 Ml Nebu IH Q4HRT PRN Shortness Of Breath Aspirin 81 mg 11/20/20 10:00 11/22/20 09:24 Aspirin 81 Mg Tab Chew PO 81 mg QDAY JOSE Administration Atorvastatin Calcium 40 mg 11/20/20 22:00 11/21/20 21:00 Atorvastatin 40 Mg Tab PO 40 mg QHS JOSE Administration Famotidine 20 mg 11/20/20 10:00 11/22/20 09:24 Famotidine 20 Mg Tab PO 20 mg QAM JOSE Administration Furosemide 40 mg 11/21/20 11:00 11/22/20 09:24 Furosemide 40 Mg/4 Ml Inj IV 40 mg BID JOSE Administration Heparin Sodium (Porcine) 5,000 unit 11/20/20 06:00 11/22/20 06:03 Heparin 5,000 Unit/1 Ml Vial SUB-Q 5,000 unit Q8HR JOSE Administration Hydralazine HCl 10 mg 11/20/20 01:55 11/22/20 06:02 Hydralazine 20 Mg/1 Ml Inj IV 10 mg Q6H PRN Administration Blood Pressure Hydralazine HCl 100 mg 11/22/20 11:00 Hydralazine 25 Mg Tab PO BID JOSE Morphine Sulfate 2 mg 11/20/20 01:43 11/20/20 02:12 Morphine 2 Mg/1 Ml Inj IV 2 mg Q4H PRN Administration Pain, Moderate (4-6) Nitroglycerin 0.4 mg 11/20/20 01:43 Nitroglycerin 0.4 Mg Tab Subl SL .Q5MIN PRN Chest Pain Ondansetron HCl 4 mg 11/20/20 01:43 Ondansetron 4 Mg/2 Ml Inj IV Q8H PRN Nausea And Vomiting Sodium Chloride 10 ml 11/20/20 10:00 11/22/20 09:25 Sodium Chloride 0.9% 10 Ml Flush Syringe IV 10 ml BID JOSE Administration Sodium Chloride 10 ml 11/20/20 01:43 Sodium Chloride 0.9% 10 Ml Flush Syringe IV PRN PRN LINE FLUSH Tamsulosin HCl 0.8 mg 11/21/20 15:00 11/22/20 09:24 Tamsulosin 0.4 Mg Cap PO 0.8 mg QDAY JOSE Administration
[2020-11-22] MEDS: hydrALAZINE 100 MG TAB PO SCH ×2 (11:59→21:36)
[2020-11-23] MEDS ORDERED: cloNIDine 0.1 MG TAB PO ONE (04:51)
[2020-11-23] MEDS: HEPARIN 5,000 UNIT/1 ML VIAL SUB-Q SCH ×3 (05:25→21:17)
[2020-11-23 05:40] LABS: Red Blood Count 3.47 M/mm3 (3.65-5.03)
[2020-11-23 05:46] LABS: Basophils # (Auto) 0.1 K/mm3 (0.0-0.1); Eosinophils % (Auto) 0.3 % (0.0-4.3); Hematocrit 25.7 % (35.5-45.6); Hemoglobin 8.2 gm/dl (11.8-15.2); Mean Corpuscular HGB Conc 32 % (32-34); Mean Corpuscular Volume 74 fl (84-94); Monocytes # (Auto) 0.6 K/mm3 (0.0-0.8); Monocytes % (Auto) 5.8 % (0.0-7.3); Platelet Count 316 K/mm3 (140-440); Red Cell Distribution Width 18.9 % (13.2-15.2)
[2020-11-23 05:53] LABS: Basophils % (Auto) 0.9 % (0.0-1.8); Calcium 8.4 mg/dL (8.4-10.2); Lymphocytes # (Auto) 1.2 K/mm3 (1.2-5.4); Lymphocytes % (Auto) 12.6 % (13.4-35.0)
[2020-11-23] MEDS: ASPIRIN 81 MG TAB CHEW PO SCH (09:36)
[2020-11-23] MEDS: TAMSULOSIN 0.4 MG CAP PO SCH (09:36)
[2020-11-23] MEDS: FAMOTIDINE 20 MG TAB PO SCH (09:36)
[2020-11-23] MEDS: hydrALAZINE 100 MG TAB PO SCH ×3 (09:36→21:17)
[2020-11-23] MEDS: FUROSEMIDE 40 MG/4 ML INJ IV SCH ×2 (09:36→21:15)
[2020-11-23] MEDS ORDERED: cloNIDine 0.1 MG TAB PO SCH (10:00)
--- NOTE | 2020-11-23 12:41 | Progress Note ---
Assessment and Plan Assessment and plan: Assessment and Plan: 45-year-old -[place] male who presents with stage V renal disease - Patient Problems Acute exacerbation of CHF (congestive heart failure) Current Visit: Yes Status: Acute Plan to address problem: Echocardiogram LVEF of 55 to 60% Cardiology consulted continueLasix 40 mg twice daily Cardiac stress test without any signs of ischemia Acute on chronic renal failure stage V Current Visit: Yes Status: Acute Plan to address problem: Nephrology consulted creatinine with slight improvement No signs for permacath placement No signs for hemodialysis at this time per nephrology Anemia secondary to renal disease Transfusions x1 Hemoglobin stabilized Urinary retention, resolved Bladder scan showing 590 cc of urinary retention Difficult to place Castle catheter Flomax started Patient with better urine output Continue furosemide 40 mg twice daily Hypertension Current Visit: Yes Status: Acute Plan to address problem: Hydralazine 10 mg IV every 6 hours as needed. Increase hydralazine 200 mg 3 times daily, nifedipine 90 mg XL Furosemide 40 mg twice daily NSTEMI type II Current Visit: Yes Status: Acute Plan to address problem: Most likely secondary to uncontrolled hypertension in addition to chronic kidney disease Patient asymptomatic, no chest pain Cardiology consulted Control blood pressure with hydralazine, furosemide, nifedipine CVA (cerebrovascular accident due to intracerebral hemorrhage) Current Visit: No Status: Acute Plan to address problem: Stable. Continue aspirin 81 mg p.o. daily. Hold Lipitor 40 mg p.o. daily, obtain liver enzymes to rule out transaminitis DVT prophylaxis Current Visit: Yes Status: Acute Plan to address problem: Heparin 5000 units subcu every 8 hours for DVT prophylaxis. Pepcid 20 mg p.o. twice daily for GI prophylaxis. Patient is a full code Disposition: Continue diuresis, continue blood pressure control. History Interval history: 11/20/2020: Patient seen and examined, eating breakfast, no chest pain, no shortness of breath, complains of lower extremity pain and swelling. 11/21/2020: Patient seen and examined, came back from stress test, hemoglobin low, will give blood transfusion. Per nursing staff, patient was bladder scanned, has 573 cc retention. Attempted to Castle cath the patient, was not able to. Patient states has been trying to urinate since last night. Advised nurse to attempt a Castle catheter again. 11/22/2020: Patient seen and examined, urine output good overnight with Flomax. Blood pressure continues to be elevated. Will add hydralazine. Spoke with cardiology, recommendations noted and appreciated. 11/23/2020: Patient seen and examined, urinating, patient's blood pressure completely uncontrolled throughout the entire night, however patient without any headache or visual changes. Spoke with the nurse to recheck the patient's blood pressure Hospitalist Physical - Physical exam Narrative exam: General appearance: no acute distress, well-nourished EENT: PERRL, EOM intact, hearing intact, clear oral mucosa Respiratory: bilateral CTA, negative: rales, rhonchi, wheezing Cardiovascular: Regular rate/rhythm, Normal S1 & S2. No gallop, rub Extremities: No ischemia in lower extremities, +1 pitting edema bilaterally Abdominal: soft, no tenderness, non-distended, normal bowel sounds Integumentary: Present: clear, warm, dry no wounds, no erythema noted Psychiatric: appropriate mood/affect, intact judgment & insight Neurologic: CNII-XII intact, moves all extremities, no sensory or motor abnormalities, no neurological deficits - Constitutional Vitals: Temp Pulse Resp BP Pulse Ox 98.0 F 98 H 18 207/111 97 11/23/20 03:33 11/23/20 05:25 11/23/20 11:00 11/23/20 05:25 11/23/20 11:00 General appearance: Present: no acute distress HEART Score - HEART Score Troponin: Troponin T 0.070 ng/mL (0.00-0.029) H 11/19/20 21:16 Results - Labs CBC & Chem 7: 11/23/20 04:48 11/23/20 04:48 Labs: Laboratory Last Values WBC 9.9 K/mm3 (4.5-11.0) 11/23/20 04:48 RBC 3.47 M/mm3 (3.65-5.03) L 11/23/20 04:48 Hgb 8.2 gm/dl (11.8-15.2) L 11/23/20 04:48 Hct 25.7 % (35.5-45.6) L 11/23/20 04:48 MCV 74 fl (84-94) L 11/23/20 04:48 MCH 24 pg (28-32) L 11/23/20 04:48 MCHC 32 % (32-34) 11/23/20 04:48 RDW 18.9 % (13.2-15.2) H 11/23/20 04:48 Plt Count 316 K/mm3 (140-440) 11/23/20 04:48 Lymph % (Auto) 12.6 % (13.4-35.0) L 11/23/20 04:48 [place] % (Auto) 5.8 % (0.0-7.3) 11/23/20 04:48 Eos % (Auto) 0.3 % (0.0-4.3) 11/23/20 04:48 Baso % (Auto) 0.9 % (0.0-1.8) 11/23/20 04:48 Lymph # (Auto) 1.2 K/mm3 (1.2-5.4) 11/23/20 04:48 [place] # (Auto) 0.6 K/mm3 (0.0-0.8) 11/23/20 04:48 Eos # (Auto) 0.0 K/mm3 (0.0-0.4) 11/23/20 04:48 Baso # (Auto) 0.1 K/mm3 (0.0-0.1) 11/23/20 04:48 Seg Neutrophils % 80.4 % (40.0-70.0) H 11/23/20 04:48 Seg Neutrophils # 7.9 K/mm3 (1.8-7.7) H 11/23/20 04:48 Sodium 142 mmol/L (137-145) 11/23/20 04:48 Potassium 3.5 mmol/L (3.6-5.0) L 11/23/20 04:48 Chloride 105.2 mmol/L (98-107) 11/23/20 04:48 Carbon Dioxide 24 mmol/L (22-30) 11/23/20 04:48 Anion Gap 16 mmol/L 11/23/20 04:48 BUN 52 mg/dL (9-20) H 11/23/20 04:48 Creatinine 4.5 mg/dL (0.8-1.3) H 11/23/20 04:48 Estimated GFR 17 ml/min 11/23/20 04:48 BUN/Creatinine Ratio 12 % 11/23/20 04:48 Glucose 86 mg/dL (75-100) 11/23/20 04:48 POC Glucose 130 mg/dL (70-105) H 11/19/20 19:39 Hemoglobin A1c < 4.0 % (4-6) L 11/21/20 04:21 Calcium 8.4 mg/dL (8.4-10.2) 11/23/20 04:48 Phosphorus 4.00 mg/dL (2.5-4.5) 11/23/20 04:48 Magnesium 2.20 mg/dL (1.7-2.3) 11/21/20 04:21 Iron 11 ug/dL (49-181) L 11/21/20 04:21 TIBC 239 mcg/dL (250-450) L 11/21/20 04:21 Total Bilirubin 0.50 mg/dL (0.1-1.2) 11/19/20 19:54 AST 40 units/L (5-40) 11/19/20 19:54 ALT 82 units/L (7-56) H 11/19/20 19:54 Alkaline Phosphatase 80 units/L (35-129) 11/19/20 19:54 Troponin T 0.070 ng/mL (0.00-0.029) H 11/19/20 21:16 Total Protein 6.5 g/dL (6.3-8.2) 11/19/20 19:54 Albumin 3.3 g/dL (3.9-5) L 11/19/20 19:54 Albumin/Globulin Ratio 1.0 % 11/19/20 19:54 Triglycerides 74 mg/dL (2-149) 11/19/20 19:54 Cholesterol 126 mg/dL (50-199) 11/19/20 19:54 LDL Cholesterol Direct 78 mg/dL (50-130) 11/19/20 19:54 HDL Cholesterol 43 mg/dL (40-59) 11/19/20 19:54 Cholesterol/HDL Ratio 2.93 % 11/19/20 19:54 Urine Color Yellow (Yellow) 11/21/20 01:41 Urine Turbidity Cloudy (Clear) 11/21/20 01:41 Urine pH 8.0 (5.0-7.0) H 11/21/20 01:41 Ur Specific [place] 1.009 (1.003-1.030) 11/21/20 01:41 Urine Protein 100 mg/dl mg/dL (Negative) 11/21/20 01:41 Urine Glucose (UA) Neg mg/dL (Negative) 11/21/20 01:41 Urine Ketones Neg mg/dL (Negative) 11/21/20 01:41 Urine Blood Neg (Negative) 11/21/20 01:41 Urine Nitrite Neg (Negative) 11/21/20 01:41 Urine Bilirubin Neg (Negative) 11/21/20 01:41 Urine Urobilinogen < 2.0 mg/dL (<2.0) 11/21/20 01:41 Ur Leukocyte Esterase Sm (Negative) 11/21/20 01:41 Urine WBC (Auto) 45.0 /HPF (0.0-6.0) H 11/21/20 01:41 Urine RBC (Auto) 1.0 /HPF (0.0-6.0) 11/21/20 01:41 U Epithel Cells (Auto) 2.0 /HPF (0-13.0) 11/21/20 01:41 Urine Bacteria (Auto) 1+ /HPF (Negative) 11/21/20 01:41 Hyaline Casts 1 /LPF 11/21/20 01:41 Urine Mucus Few /HPF 11/21/20 01:41 Urine Total Volume 1700 ml 11/21/20 11:56 Urine Creatinine 102.0 mg/dL (0.1-20.0) H 11/21/20 Unknown Height (in) 71.0 inches 11/21/20 11:56 Weight (lb) 179.5 lbs 11/21/20 11:56 Creatinine Clearance 14 11/21/20 11:56 Protein/Creatinin Ratio 0.54 11/21/20 Unknown Urine Total Protein 55 mg/dL (5-11.8) H 11/21/20 Unknown Hepatitis A IgM Ab Non-reactive (NonReactive) 11/22/20 04:48 Hep Bs Antigen Non-reactive (Negative) 11/22/20 04:48 Hep B Core IgM Ab Non-reactive (NonReactive) 11/22/20 04:48 Hepatitis C Antibody Non-reactive (NonReactive) 11/22/20 04:48 Blood Type A POSITIVE 11/21/20 12:30 Antibody Screen Negative 11/21/20 12:30 Crossmatch See Detail 11/21/20 12:30 Microbiology: Microbiology 11/21/20 01:41 Urine,Clean Catch Urine Culture - Final Castle/IV: Voiding Method Urinal Active Medications - Current Medications Current Medications: Generic Name Dose Route Start Last Admin Trade Name Freq PRN Reason Stop Dose Admin Acetaminophen 650 mg 11/20/20 01:43 Acetaminophen 325 Mg Tab PO Q4H PRN Pain MILD(1-3)/Fever >100.5/SINGLETARY Albuterol 2.5 mg 11/20/20 01:43 Albuterol 2.5 Mg/3 Ml Nebu IH Q4HRT PRN Shortness Of Breath Aspirin 81 mg 11/20/20 10:00 11/23/20 09:36 Aspirin 81 Mg Tab Chew PO 81 mg QDAY JOSE Administration Atorvastatin Calcium 40 mg 11/20/20 22:00 11/22/20 21:36 Atorvastatin 40 Mg Tab PO 40 mg QHS JOSE Administration Famotidine 20 mg 11/20/20 10:00 11/23/20 09:36 Famotidine 20 Mg Tab PO 20 mg QAM JOSE Administration Furosemide 40 mg 11/21/20 11:00 11/23/20 09:36 Furosemide 40 Mg/4 Ml Inj IV 40 mg BID JOSE Administration Heparin Sodium (Porcine) 5,000 unit 11/20/20 06:00 11/23/20 05:25 Heparin 5,000 Unit/1 Ml Vial SUB-Q 5,000 unit Q8HR JOSE Administration Hydralazine HCl 10 mg 11/20/20 01:55 11/22/20 17:31 Hydralazine 20 Mg/1 Ml Inj IV 10 mg Q6H PRN Administration Blood Pressure Hydralazine HCl 100 mg 11/23/20 08:00 11/23/20 09:36 Hydralazine 100 Mg Tab PO 100 mg TID JOSE Administration Morphine Sulfate 2 mg 11/20/20 01:43 11/20/20 02:12 Morphine 2 Mg/1 Ml Inj IV 2 mg Q4H PRN Administration Pain, Moderate (4-6) Nitroglycerin 0.4 mg 11/20/20 01:43 Nitroglycerin 0.4 Mg Tab Subl SL .Q5MIN PRN Chest Pain Ondansetron HCl 4 mg 11/20/20 01:43 Ondansetron 4 Mg/2 Ml Inj IV Q8H PRN Nausea And Vomiting Sodium Chloride 10 ml 11/20/20 10:00 11/23/20 09:47 Sodium Chloride 0.9% 10 Ml Flush Syringe IV 10 ml BID JOSE Administration Sodium Chloride 10 ml 11/20/20 01:43 Sodium Chloride 0.9% 10 Ml Flush Syringe IV PRN PRN LINE FLUSH Tamsulosin HCl 0.8 mg 11/21/20 15:00 11/23/20 09:36 Tamsulosin 0.4 Mg Cap PO 0.8 mg QDAY JOSE Administration
--- NOTE | 2020-11-23 12:47 | Progress Note ---
Assessment and Plan (1) Acute exacerbation of CHF (congestive heart failure) (2) Acute on chronic renal failure (3) Hypertension (4) Elevated troponin (5) CVA (cerebrovascular accident due to intracerebral hemorrhage) worsening kidney function is likely secondary to progression of CKD with excellent urine output and stable kidney function, no indication for HD, will need to have AVF repaired as an outpatient and then can be initiaed dialysis if needed can be discharged from renal standpoint renally dose meds strict I&O Tommy nunn MD [phone] Subjective Date of service: 11/23/20 Principal diagnosis: ESRD Interval history: urinating a lot, SOB is better Objective - Vital Signs Vital signs: Vital Signs - 12hr 11/23/20 11/23/20 11/23/20 03:33 04:00 05:25 Temperature 98.0 F Pulse Rate 101 H 98 H 98 H Respiratory 18 Rate Blood Pressure 215/113 207/111 Blood Pressure 207/111 [Right] O2 Sat by Pulse 95 100 Oximetry 11/23/20 11:00 Temperature Pulse Rate Respiratory 18 Rate Blood Pressure Blood Pressure [Right] O2 Sat by Pulse 97 Oximetry - General Appearance General appearance: well-developed, well-nourished, appears stated age EENT: ATNC, PERRL, mucous membranes moist Neck: no JVD, no carotid bruit Respiratory: Present: Clear to Ascultation. Absent: Rales, Ronchi Cardiology: regular, S1S2 Gastrointestinal: normoactive bowel sounds Integumentary: no rash, warm and dry Neurologic: no focal deficit, no asterixis, alert and oriented x3 Psychiatric: mood/affect appropriate - Lab 11/23/20 04:48 11/23/20 04:48 Most recent lab results Calcium 8.4 mg/dL (8.4-10.2) 11/23/20 04:48 Phosphorus 4.00 mg/dL (2.5-4.5) 11/23/20 04:48 Magnesium 2.20 mg/dL (1.7-2.3) 11/21/20 04:21 Urine Creatinine 102.0 mg/dL (0.1-20.0) H 11/21/20 Unknown Urine Total Protein 55 mg/dL (5-11.8) H 11/21/20 Unknown Medications & Allergies - Medications Allergies/Adverse Reactions: Allergies No Known Allergies Allergy (Verified 11/19/20 20:35) Home Medications: Home Medications Medication Instructions Recorded Confirmed Last Taken Type Atorvastatin (Nf) [Lipitor] 10 mg PO QHS #30 tab 03/22/14 05/04/16 Unknown Rx Ciprofloxacin HCl [Ciprofloxacin 500 mg PO BID #14 tablet 05/06/16 Unknown Rx TAB] NIFEdipine XL [Procardia Xl] 90 mg PO QDAY 7 Days #7 tablet 09/13/18 Unknown Rx cloNIDine [Catapres] 0.2 mg PO TID 7 Days #21 tablet 09/13/18 Unknown Rx hydrALAZINE [Apresoline TAB] 100 mg PO TID 7 Days #21 tablet 09/13/18 Unknown Rx Active Medications: Generic Name Dose Route Start Last Admin Trade Name Freq PRN Reason Stop Dose Admin Acetaminophen 650 mg 11/20/20 01:43 Acetaminophen 325 Mg Tab PO Q4H PRN Pain MILD(1-3)/Fever >100.5/SINGLETARY Albuterol 2.5 mg 11/20/20 01:43 Albuterol 2.5 Mg/3 Ml Nebu IH Q4HRT PRN Shortness Of Breath Aspirin 81 mg 11/20/20 10:00 11/23/20 09:36 Aspirin 81 Mg Tab Chew PO 81 mg QDAY JOSE Administration Atorvastatin Calcium 40 mg 11/20/20 22:00 11/22/20 21:36 Atorvastatin 40 Mg Tab PO 40 mg QHS JOSE Administration Famotidine 20 mg 11/20/20 10:00 11/23/20 09:36 Famotidine 20 Mg Tab PO 20 mg QAM JOSE Administration Furosemide 40 mg 11/21/20 11:00 11/23/20 09:36 Furosemide 40 Mg/4 Ml Inj IV 40 mg BID JOSE Administration Heparin Sodium (Porcine) 5,000 unit 11/20/20 06:00 11/23/20 05:25 Heparin 5,000 Unit/1 Ml Vial SUB-Q 5,000 unit Q8HR JOSE Administration Hydralazine HCl 10 mg 11/20/20 01:55 11/22/20 17:31 Hydralazine 20 Mg/1 Ml Inj IV 10 mg Q6H PRN Administration Blood Pressure Hydralazine HCl 100 mg 11/23/20 08:00 11/23/20 09:36 Hydralazine 100 Mg Tab PO 100 mg TID JOSE Administration Morphine Sulfate 2 mg 11/20/20 01:43 11/20/20 02:12 Morphine 2 Mg/1 Ml Inj IV 2 mg Q4H PRN Administration Pain, Moderate (4-6) Nifedipine 90 mg 11/23/20 13:00 Nifedipine Xl 90 Mg Tab PO QDAY JOSE Nitroglycerin 0.4 mg 11/20/20 01:43 Nitroglycerin 0.4 Mg Tab Subl SL .Q5MIN PRN Chest Pain Ondansetron HCl 4 mg 11/20/20 01:43 Ondansetron 4 Mg/2 Ml Inj IV Q8H PRN Nausea And Vomiting Sodium Chloride 10 ml 11/20/20 10:00 11/23/20 09:47 Sodium Chloride 0.9% 10 Ml Flush Syringe IV 10 ml BID JOSE Administration Sodium Chloride 10 ml 11/20/20 01:43 Sodium Chloride 0.9% 10 Ml Flush Syringe IV PRN PRN LINE FLUSH Tamsulosin HCl 0.8 mg 11/21/20 15:00 11/23/20 09:36 Tamsulosin 0.4 Mg Cap PO 0.8 mg QDAY JOSE Administration
[2020-11-23] MEDS: NIFEdipine XL 90 MG TAB PO SCH (12:55)
[2020-11-23] MEDS: hydrALAZINE 20 MG/1 ML INJ IV PRN (17:16)
[2020-11-23] MEDS ORDERED: cloNIDine 0.2 MG TAB PO ONE (17:20)
[2020-11-23] MEDS: cloNIDine 0.2 MG TAB PO SCH (21:16)
[2020-11-24] MEDS: hydrALAZINE 20 MG/1 ML INJ IV PRN (04:35)
[2020-11-24] MEDS: HEPARIN 5,000 UNIT/1 ML VIAL SUB-Q SCH ×2 (05:58→15:52)
[2020-11-24 06:07] LABS: Basophils # (Auto) 0.1 K/mm3 (0.0-0.1); Basophils % (Auto) 0.6 % (0.0-1.8); Eosinophils % (Auto) 0.4 % (0.0-4.3); Hematocrit 24.5 % (35.5-45.6); Hemoglobin 7.8 gm/dl (11.8-15.2); Lymphocytes # (Auto) 1.5 K/mm3 (1.2-5.4); Lymphocytes % (Auto) 16.1 % (13.4-35.0); Mean Corpuscular HGB Conc 32 % (32-34); Mean Corpuscular Volume 74 fl (84-94); Monocytes # (Auto) 0.6 K/mm3 (0.0-0.8); Monocytes % (Auto) 6.7 % (0.0-7.3); Platelet Count 284 K/mm3 (140-440); Red Blood Count 3.31 M/mm3 (3.65-5.03)
[2020-11-24 06:23] LABS: Alanine Aminotransferase 30 units/L (7-56); Albumin 2.8 g/dL (3.9-5)
[2020-11-24 06:27] LABS: Calcium 8.4 mg/dL (8.4-10.2)
[2020-11-24 06:28] LABS: Bilirubin,Direct < 0.2 mg/dL (0-0.2)
--- NOTE | 2020-11-24 10:21 | Progress Note ---
Assessment and Plan (1) Acute exacerbation of CHF (congestive heart failure) (2) Acute on chronic renal failure (3) Hypertension (4) Elevated troponin (5) CVA (cerebrovascular accident due to intracerebral hemorrhage) cont to have very good UOP with stable kidney function, no indication for HD, will need to have AVF repaired as an outpatient and then can be initiated dialysis if needed can be discharged from renal standpoint, he will be followed as an outpatient within 1-2 weeks renally dose meds strict I&O Tommy nunn MD [phone] Subjective Date of service: 11/24/20 Principal diagnosis: ESRD Interval history: comfortable, denies acute issues. Objective - Vital Signs Vital signs: Vital Signs - 12hr 11/23/20 11/23/20 11/24/20 23:00 23:20 03:34 Temperature 98.6 F 99.7 F H Pulse Rate 100 H 94 H Respiratory 18 16 16 Rate Blood Pressure 142/89 172/97 O2 Sat by Pulse 96 96 97 Oximetry 11/24/20 04:35 Temperature Pulse Rate 94 H Respiratory Rate Blood Pressure 172/97 O2 Sat by Pulse Oximetry - Lab 11/24/20 05:37 11/24/20 05:37 Most recent lab results Calcium 8.4 mg/dL (8.4-10.2) 11/24/20 05:37 Phosphorus 3.90 mg/dL (2.5-4.5) 11/24/20 05:37 Magnesium 2.20 mg/dL (1.7-2.3) 11/21/20 04:21 Urine Creatinine 102.0 mg/dL (0.1-20.0) H 11/21/20 Unknown Urine Total Protein 55 mg/dL (5-11.8) H 11/21/20 Unknown Medications & Allergies - Medications Allergies/Adverse Reactions: Allergies No Known Allergies Allergy (Verified 11/19/20 20:35) Home Medications: Home Medications Medication Instructions Recorded Confirmed Last Taken Type Atorvastatin (Nf) [Lipitor] 10 mg PO QHS #30 tab 03/22/14 05/04/16 Unknown Rx Ciprofloxacin HCl [Ciprofloxacin 500 mg PO BID #14 tablet 05/06/16 Unknown Rx TAB] NIFEdipine XL [Procardia Xl] 90 mg PO QDAY 7 Days #7 tablet 09/13/18 Unknown Rx cloNIDine [Catapres] 0.2 mg PO TID 7 Days #21 tablet 09/13/18 Unknown Rx hydrALAZINE [Apresoline TAB] 100 mg PO TID 7 Days #21 tablet 09/13/18 Unknown Rx Active Medications: Generic Name Dose Route Start Last Admin Trade Name Freq PRN Reason Stop Dose Admin Acetaminophen 650 mg 11/20/20 01:43 Acetaminophen 325 Mg Tab PO Q4H PRN Pain MILD(1-3)/Fever >100.5/SINGLETARY Albuterol 2.5 mg 11/20/20 01:43 Albuterol 2.5 Mg/3 Ml Nebu IH Q4HRT PRN Shortness Of Breath Aspirin 81 mg 11/20/20 10:00 11/23/20 09:36 Aspirin 81 Mg Tab Chew PO 81 mg QDAY JOSE Administration Clonidine HCl 0.2 mg 11/23/20 22:00 11/23/20 21:16 Clonidine 0.2 Mg Tab PO 0.2 mg TID JOSE Administration Famotidine 20 mg 11/20/20 10:00 11/23/20 09:36 Famotidine 20 Mg Tab PO 20 mg QAM JOSE Administration Furosemide 40 mg 11/21/20 11:00 11/23/20 21:15 Furosemide 40 Mg/4 Ml Inj IV 40 mg BID JOSE Administration Heparin Sodium (Porcine) 5,000 unit 11/20/20 06:00 11/24/20 05:58 Heparin 5,000 Unit/1 Ml Vial SUB-Q 5,000 unit Q8HR JOSE Administration Hydralazine HCl 10 mg 11/20/20 01:55 11/24/20 04:35 Hydralazine 20 Mg/1 Ml Inj IV 10 mg Q6H PRN Administration Blood Pressure Hydralazine HCl 100 mg 11/23/20 08:00 11/23/20 21:17 Hydralazine 100 Mg Tab PO 100 mg TID JOSE Administration Morphine Sulfate 2 mg 11/20/20 01:43 11/20/20 02:12 Morphine 2 Mg/1 Ml Inj IV 2 mg Q4H PRN Administration Pain, Moderate (4-6) Nifedipine 90 mg 11/23/20 13:00 11/23/20 12:55 Nifedipine Xl 90 Mg Tab PO 90 mg QDAY JOSE Administration Nitroglycerin 0.4 mg 11/20/20 01:43 Nitroglycerin 0.4 Mg Tab Subl SL .Q5MIN PRN Chest Pain Ondansetron HCl 4 mg 11/20/20 01:43 Ondansetron 4 Mg/2 Ml Inj IV Q8H PRN Nausea And Vomiting Sodium Chloride 10 ml 11/20/20 10:00 11/23/20 21:18 Sodium Chloride 0.9% 10 Ml Flush Syringe IV 10 ml BID JOSE Administration Sodium Chloride 10 ml 11/20/20 01:43 Sodium Chloride 0.9% 10 Ml Flush Syringe IV PRN PRN LINE FLUSH Tamsulosin HCl 0.8 mg 11/21/20 15:00 11/23/20 09:36 Tamsulosin 0.4 Mg Cap PO 0.8 mg QDAY JOSE Administration
[2020-11-24] MEDS: ASPIRIN 81 MG TAB CHEW PO SCH (10:46)
[2020-11-24] MEDS: TAMSULOSIN 0.4 MG CAP PO SCH (10:46)
[2020-11-24] MEDS: NIFEdipine XL 90 MG TAB PO SCH (10:46)
[2020-11-24] MEDS: FUROSEMIDE 40 MG/4 ML INJ IV SCH (10:46)
[2020-11-24] MEDS: hydrALAZINE 100 MG TAB PO SCH ×2 (10:52→15:51)
[2020-11-24] MEDS: cloNIDine 0.2 MG TAB PO SCH ×2 (10:52→15:51)
[2020-11-24] MEDS: FAMOTIDINE 20 MG TAB PO SCH (11:53)
--- NOTE | 2020-11-24 13:02 | Discharge Summary ---
Providers - Providers Date of Admission: 11/20/20 12:21 Date of discharge: 11/24/20 Attending physician: RICARDO POLLARD MD 11/20/20 01:43 Consult to Physician [CONS] Routine Comment: Consulting Provider: ANNIKA ROSALES Physician Instructions: Reason For Exam: RONEN Consult to Physician [CONS] Routine Comment: Consulting Provider: ADRY TALBERT Physician Instructions: Reason For Exam: CHF 11/20/20 13:53 Consult to Physician [CONS] Routine Comment: Consulting Provider: LEYDI LA Physician Instructions: Reason For Exam: malfunctioned AVF, may need permcath 11/21/20 10:24 Consult to Case Management [CONS] Routine Services Needed at Discharge: Other Notified:: casey saw operator Additional Physician Instructions: Address: [facility] [place] [address] Primary care physician: IRRADIATED FUEL HANDLER Hospitalization Condition: Good Hospital course: Assessment and Plan: 45-year-old -[place]og[place] male who presents with stage V renal disease - Patient Problems Acute exacerbation of CHF (congestive heart failure) Current Visit: Yes Status: Acute Plan to address problem: Echocardiogram LVEF of 55 to 60% Cardiology consulted continueLasix 40 mg twice daily Cardiac stress test without any signs of ischemia Acute on chronic renal failure stage V Current Visit: Yes Status: Acute Plan to address problem: Nephrology consulted creatinine with slight improvement No signs for permacath placement No signs for hemodialysis at this time per nephrology Anemia secondary to renal disease Transfusions x1 Hemoglobin stabilized Urinary retention, resolved Bladder scan showing 590 cc of urinary retention Difficult to place Castle catheter Flomax started Patient with better urine output Continue furosemide 40 mg twice daily Hypertension Current Visit: Yes Status: Acute Plan to address problem: Hydralazine 10 mg IV every 6 hours as needed. Increase hydralazine 200 mg 3 times daily, nifedipine 90 mg XL Furosemide 40 mg twice daily NSTEMI type II Current Visit: Yes Status: Acute Plan to address problem: Most likely secondary to uncontrolled hypertension in addition to chronic kidney disease Patient asymptomatic, no chest pain Cardiology consulted Control blood pressure with hydralazine, furosemide, nifedipine CVA (cerebrovascular accident due to intracerebral hemorrhage) Current Visit: No Status: Acute Plan to address problem: Stable. Continue aspirin 81 mg p.o. daily. continue statin History Interval history: 11/20/2020: Patient seen and examined, eating breakfast, no chest pain, no shortness of breath, complains of lower extremity pain and swelling. 11/21/2020: Patient seen and examined, came back from stress test, hemoglobin low, will give blood transfusion. Per nursing staff, patient was bladder scanned, has 573 cc retention. Attempted to Castle cath the patient, was not able to. Patient states has been trying to urinate since last night. Advised nurse to attempt a Castle catheter again. 11/22/2020: Patient seen and examined, urine output good overnight with Flomax. Blood pressure continues to be elevated. Will add hydralazine. Spoke with cardiology, recommendations noted and appreciated. 11/23/2020: Patient seen and examined, urinating, patient's blood pressure completely uncontrolled throughout the entire night, however patient without any headache or visual changes. Spoke with the nurse to recheck the patient's blood pressure 11/24/2020: Patient seen examined, no chest pain shortness of breath, good urine output. Blood pressure better controlled. Patient feels comfortable going home, follow-up with renal. All scripts given to the patient. Disposition: DC-01 TO HOME OR SELFCARE Final Discharge Diagnosis (Prints w/discharge instructions): Acute on chronic renal failure stage V. Anemia secondary to renal disease. Urinary retention. Hypertension. NSTEMI type II. History of CVA Time spent for discharge: 35 minutes Core Measure Documentation - Palliative Care Palliative Care/ Comfort Measures: Not Applicable - Core Measures Any of the following diagnoses?: none Exam - Physical Exam Narrative exam: General appearance: no acute distress, well-nourished EENT: PERRL, EOM intact, hearing intact, clear oral mucosa Respiratory: bilateral CTA, negative: rales, rhonchi, wheezing Cardiovascular: Regular rate/rhythm, Normal S1 & S2. No gallop, rub Extremities: No ischemia in lower extremities, +1 pitting edema bilaterally Abdominal: soft, no tenderness, non-distended, normal bowel sounds Integumentary: Present: clear, warm, dry no wounds, no erythema noted Psychiatric: appropriate mood/affect, intact judgment & insight Neurologic: CNII-XII intact, moves all extremities, no sensory or motor abnormalities, no neurological deficits - Constitutional Vitals: Temp Pulse Resp BP Pulse Ox 97.7 F 89 20 159/93 98 11/24/20 12:43 11/24/20 12:43 11/24/20 12:43 11/24/20 12:43 11/24/20 12:43 Plan Activity: no restrictions Diet: renal Plan of Treatment: Please take all your blood pressure medications as required. Please follow-up with nephrology as scheduled. Follow up with: PRIMARY MD EMILY [Primary Care Provider] - 3-5 Days MONET DRIVER MD [Staff Physician] - 14 Days (Please call to make an appointment with the kidney doctor) Prescriptions: hydrALAZINE [Apresoline TAB] 100 mg PO TID #180 tablet cloNIDine [Catapres] 0.2 mg PO TID #180 tablet Tamsulosin [Flomax] 0.4 mg PO QDAY #15 cap NIFEdipine XL [Procardia Xl] 90 mg PO QDAY #90 tablet
[2020-11-24 15:42] VITALS: BP 151/88
[2020-11-26 17:20] LABS: Albumin 2.5 g/dL (3.8-4.8); Gamma Globulin 1.1 g/dL (0.8-1.7)
== END 2020-11-24 17:11 | disposition home or self-care (01) | DRG 280 ==
LOC: ED 18:26 → 4A 21:14 → OBSVTOIN 11-20 12:21
PROVIDERS: ADMIT Hospitalist; ATTEND Family Medicine
DX: I13.2 Hypertensive heart and chronic kidney disease with heart failure and with stage 5 chronic kidney disease, or end stage renal disease (principal); I21.A1 Myocardial infarction type 2; I50.33 Acute on chronic diastolic (congestive) heart failure; N17.9 Acute kidney failure, unspecified; I16.1 Hypertensive emergency; Z86.73 Personal history of transient ischemic attack (TIA), and cerebral infarction without residual deficits; Z91.14 Patient's other noncompliance with medication regimen; R33.9 Retention of urine, unspecified; D63.1 Anemia in chronic kidney disease; N18.5 Chronic kidney disease, stage 5
CPT/HCPCS: 36415; 71046; 76770; 76857; 78452; 80048; 80053; 80061; 80074; 80076; 81001; 82565; 82570; 82575; 82962; 83036; 83550; 83735; 84100; 84156; 84165; 84484; 85025; 86850; 86900; 86901; 86920; 87086; 93005; 93017; 93306; 94640; 96374; 96375; 96376; G0378; A9270-GY; A9502; J0360; J1644; J1940; J2270; J2785; P9016